=== PATIENT | female | born 1940 | race Caucasian/White ===

== ENCOUNTER → 2016-10-15 | Outpatient (CLI) | payer OTHER ==
[~2016-10-15] MED LIST: AMOX1TAB43 PO; APIX1TAB3 PO; ASCA500 PO; ASCO500T3 PO; CALC600T37 PO; CALCTAB5 PO; ELQ25 PO; FURO-85 PO; GLUC500C4 PO; IBUP-1050 PO; LEVO75TA PO; LOSA1TAB38 PO; MULT-190 PO; MULT60CA PO; OMEG10007 PO; ONDA4TAB10 SL
[2016-10-15 12:03] LABS: MEAN CELL VOLUME 88.4 fL (80-100); MEAN CORPUSCULAR HEMOGLOBIN 28.3 pg (25-34); MEAN PLATELET VOLUME 9.8 fL (7.4-10.4); PLATELET COUNT 235 K/uL (130-400); RED BLOOD COUNT 4.98 M/uL (4.2-5.4); WHITE BLOOD COUNT 6.32 K/uL (4.8-10.8)
[2016-10-15 12:12] LABS: ALT/SGPT 20 U/L (12-78); BLOOD UREA NITROGEN 13 mg/dl (7-18); BUN/CREATININE RATIO 16.9 (10-20); CARBON DIOXIDE 26 mmol/L (21-32); CHLORIDE 109 mmol/L (98-107); CHOLESTEROL 172 mg/dl (0-200); CREATININE 0.75 mg/dl (0.60-1.20); GLUCOSE 100 mg/dl (70-99); POTASSIUM 4.3 mmol/L (3.5-5.1); SODIUM 142 mmol/L (136-145); TRIGLYCERIDES 156 mg/dl (0-150); VERY LOW DENSITY LIPOPROT CALC 31 mg/dl
[2016-10-15 12:15] LABS: CALCIUM 9.3 mg/dl (8.5-10.1)
[2016-10-15 12:23] LABS: ALB/GLOB RATIO 1.1 (0.9-2); ALKALINE PHOSPHATASE 60 U/L (45-117); AST/SGOT 16 U/L (15-37); HDL CHOLESTEROL 43 mg/dl; LDL CHOLESTEROL CALCULATED 98 mg/dl
[2016-10-15 13:01] LABS: ESTIMATED AVERAGE GLUCOSE 120 mg/dl; HA1C FLAG Normal (Normal)
== END | disposition home or self-care (01) ==
LOC: C.LABBFT 07:38
PROVIDERS: ATTEND Internal Medicine
DX: R73.01 Impaired fasting glucose (principal); E03.9 Hypothyroidism, unspecified; I10 Essential (primary) hypertension

== ENCOUNTER 2016-11-11 06:40 | Inpatient (IN) | payer OTHER ==
[~2016-11-11] VITALS: Ht 167.6 cm; Wt 100.0 kg
[~2016-11-11 06:40] MED LIST changes: -AMOX1TAB43 PO; -APIX1TAB3 PO; -ASCO500T3 PO; -CALC600T37 PO; -ELQ25 PO; -FURO-85 PO; -MULT60CA PO; -ONDA4TAB10 SL
[2016-11-11] MEDS ORDERED: HYDROmorphone INJ 0.5 MG/0.5 ML SYR IV STA (07:04)
[2016-11-11] MEDS ORDERED: ONDANSETRON INJ 2 MG/ML 2 ML VIAL IV STA (07:04)
[2016-11-11 07:50] LABS: BASO % 0.1 %; BASO ABS # 0.01 K/uL (0-0.2); COMPLETE YES; EOS % 0.4 %; HEMATOCRIT 42.7 % (37-47); IG% 0.2 %; LYMPH % 15.1 %; LYMPH ABS # 1.69 K/uL (1.2-3.4); MEAN CORPUSCULAR HEMOGLOBIN 29.5 pg (25-34); MEAN PLATELET VOLUME 9.3 fL (7.4-10.4); MONO % 6.7 %; NEUT % 77.5 %; PLATELET COUNT 214 K/uL (130-400); RED BLOOD COUNT 4.91 M/uL (4.2-5.4); WHITE BLOOD COUNT 11.19 K/uL (4.8-10.8)
[2016-11-11 08:01] LABS: PROTHROMBIN TIME (PATIENT) 10.4 SECONDS (9.0-12.0)
[2016-11-11 08:07] LABS: BUN/CREATININE RATIO 18.2 (10-20); CALCIUM 9.2 mg/dl (8.5-10.1); CREATININE 0.78 mg/dl (0.60-1.20); POTASSIUM 3.8 mmol/L (3.5-5.1)
--- NOTE | 2016-11-11 09:14 | DIAGNOSTIC IMAGING REPORT ---
Venous Doppler right leg RIGHT VENOUS DOPP LOWER EXT UNILAT CLINICAL HISTORY: RLE swelling Right pain. Edema. TECHNIQUE: Venous Doppler COMPARISON STUDY: 09/18/2015 FINDINGS: Chronic venous scarring of the saphenous venous structures. Small amount of intraluminal stranding right proximal femoral vein as well as profunda vein. All remaining deep venous structures are unremarkable. IMPRESSION: 1. Acute deep venous thrombosis proximal right femoral vein. 2. 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 11/11/2016 9:13 AM Dictated Date/Time: 11/11/2016 9:10 AM
[2016-11-11] MEDS ORDERED: CALC600T37 PO (09:27)
[2016-11-11] MEDS ORDERED: ASCO500T3 PO (09:27)
[2016-11-11] MEDS ORDERED: MULT-190 PO (09:27)
[2016-11-11] MEDS ORDERED: CEFTRIAXONE SOD INJ 1 GM ADDVIAL IV STA (09:52)
[2016-11-11] MEDS ORDERED: HEPARIN 25000 UNIT/ D5W 500 ML (PHARMACY PREPARED) IV PRN ×2 (10:15)
[2016-11-11 10:23] VITALS: O2SAT 96; Ht 167.6 cm; Wt 100.0 kg
[2016-11-11] MEDS ORDERED: HEPARIN 25000 UNIT/500 ML D5W ONE (10:31)
[2016-11-11] MEDS ORDERED: HEPARIN IV BOLUS 4,000 UNIT in SYRINGE 0 ML IV ONE (11:00)
[2016-11-11] MEDS ORDERED: ALUMINUM/MAGNESIUM/SIMETH (MAALOX MAX) 30 ML UDC PO PRN (11:15)
[2016-11-11] MEDS ORDERED: ACETAMINOPHEN 325 MG TAB PO PRN (11:15)
[2016-11-11] MEDS ORDERED: ONDANSETRON INJ 2 MG/ML 2 ML VIAL IV PRN (11:15)
[2016-11-11] MEDS ORDERED: ENOXAPARIN 1 MG/KG SQ SCH (11:15)
[2016-11-11] MEDS ORDERED: MAGNESIUM HYDROXIDE SUSP 30 ML UDC PO PRN (11:15)
[2016-11-11] MEDS ORDERED: OXYCODONE HCL IR 5 MG TAB (IMMEDIATE RELEASE) PO PRN (11:15)
[2016-11-11] MEDS ORDERED: POLYETHYLENE (MIRALAX) 17 GM PACK PO PRN (11:15)
[2016-11-11 13:01] VITALS: O2SAT 95
[2016-11-11 13:30] VITALS: BP 148/76; PULSE 89; TEMP 37.4; O2SAT 95
--- NOTE | 2016-11-11 14:00 | History and Physical ---
History & Physical Date & Time of Service: Nov 11, 2016 at 13:51 Chief Complaint: Leg Cellulitis, Right Leg Dvt Primary Care Physician: Yoan Medrano M.D. History of Present Illness This patient presents for admission with acute right lower extremity DVT and secondary cellulitis. She is a history of an ORIF to her right ankle in 2008 and superficial thrombophlebitis of her lower leg in August 2015. Because a superficial phlebitis with symptomatic she was treated by her primary care physician with Eliquis. The patient presents today with 24-hour history of worsening leg swelling and erythema to her distal right leg. The patient has chronic leg swelling on that side and it is worse than usual for her. In the emergency department there was initial concern for cellulitis with a white blood cell count elevated to 11, however a venous Doppler confirms evidence of a DVT proximal to the cellulitis area. The patient is agreeable for admission for treatment of her cellulitis and is also agreeable to re-beginning Eliquis to treat her DVT Past Medical/Surgical History Surgical Problems: (1) History of hysterectomy Status: Resolved Family History Cancer Heart disease Social History Smoking Status: Never Smoker Smokeless Tobacco Use: No Alcohol Use: none Occupational Status: retired Immunizations History of Influenza Vaccine: N/A History of Tetanus Vaccine?: No History of Pneumococcal: No History of Hepatitis B Vaccine: No Multi-Drug Resistant Organisms History of MDRO: No Allergies Coded Allergies: Morphine (Verified Adverse Reaction, Severe, vomit, 11/11/16) Home Medications Scheduled Amoxicillin & Pot Clavulanate (Amoxicillin/Clavulanate P), 875 MG PO BIDM Apixaban (Eliquis), 5 MG PO BID Ascorbic Acid (Vitamin C), 1 TAB PO DAILY Calcium (Calcium), 1 TAB PO DAILY Fish Oil ([place]-3), 2 CAP PO BID Glucosamine Sulfate (Glucosamine), 500 MG PO QAM Levothyroxine Sodium (Synthroid), 75 MCG PO DAILYBB Losartan Potassium (Cozaar), 100 MG PO QAM Ocuvite Preservision (Ocuvite Preservision), 2 TABS PO DAILY Review of Systems ROS: well nourished well developed No double vision blurry vision No problems with speech or swallowing No palpitations, chest pain or pressure No Wheezing or breathing issues No abdominal pain nausea vomiting diarrhea changes in appetite or weight No burning urine urine frequency or changes in color Right calf is painful to muscular flexion and touch and more swollen than usual Distal right leg skin is erythematous warm and tender No unusual bruising or bleeding No focused back pain or numbness or loss of strength No changes in memory or confusion Physical Exam Vital Signs Date Time Temp Pulse Resp B/P (MAP) Pulse Ox O2 Delivery O2 Flow Rate FiO2 11/11/16 13:30 37.4 89 18 148/76 (100) 95 Room Air 11/11/16 13:01 84 18 148/65 95 Room Air 11/11/16 11:25 88 18 151/88 95 Room Air 11/11/16 10:23 96 Room Air 11/11/16 09:30 88 18 150/81 96 Room Air 11/11/16 06:46 36.6 95 18 99 Room Air General Appearance: WD/WN, + mild distress Head: normocephalic, atraumatic Eyes: PERRL, EOMI Neck: supple, no JVD Respiratory/Chest: chest non-tender, lungs clear, normal breath sounds Cardiovascular: regular rate, rhythm, no murmur Abdomen/GI: normal bowel sounds, non tender, soft Extremities/Musculoskelatal: + pedal edema, + swelling (tender right calf) Neurologic/Psych: 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 counselor II-XII nml as tested, no motor/sensory deficits, alert Skin: + pertinent finding (changes consistent with chronic venous stasis and secondary cellulitis of right lower leg) Diagnostics Laboratory Results Results Past 24 Hours Test 11/11/16 07:30 Range/Units White Blood Count 11.19 4.8-10.8 K/uL Red Blood Count 4.91 4.2-5.4 M/uL Hemoglobin 14.5 12.0-16.0 g/dL Hematocrit 42.7 37-47 % Mean Corpuscular Volume 87.0 80-100 fL Mean Corpuscular Hemoglobin 29.5 25-34 pg Mean Corpuscular Hemoglobin Concent 34.0 32-36 g/dl Platelet Count 214 130-400 K/uL Mean Platelet Volume 9.3 7.4-10.4 fL Neutrophils (%) (Auto) 77.5 % Lymphocytes (%) (Auto) 15.1 % Monocytes (%) (Auto) 6.7 % Eosinophils (%) (Auto) 0.4 % Basophils (%) (Auto) 0.1 % Neutrophils # (Auto) 8.68 1.4-6.5 K/uL Lymphocytes # (Auto) 1.69 1.2-3.4 K/uL Monocytes # (Auto) 0.75 0.11-0.59 K/uL Eosinophils # (Auto) 0.04 0-0.5 K/uL Basophils # (Auto) 0.01 0-0.2 K/uL RDW Standard Deviation 39.6 36.4-46.3 fL RDW Coefficient of Variation 12.3 11.5-14.5 % Immature Granulocyte % (Auto) 0.2 % Immature Granulocyte # (Auto) 0.02 0.00-0.02 K/uL Prothrombin Time 10.4 9.0-12.0 SECONDS Prothromb Time International Ratio 1.0 0.9-1.1 Activated Partial Thromboplast Time 24.7 21.0-31.0 SECONDS Partial Thromboplastin Ratio 1.0 Sodium Level 140 136-145 mmol/L Potassium Level 3.8 3.5-5.1 mmol/L Chloride Level 108 98-107 mmol/L Carbon Dioxide Level 27 21-32 mmol/L Anion Gap 5.0 3-11 mmol/L Blood Urea Nitrogen 14 7-18 mg/dl Creatinine 0.78 0.60-1.20 mg/dl Est Creatinine Clear Calc Drug Dose 72.0 ml/min Estimated GFR () 85.0 Estimated GFR (Non- 73.3 BUN/Creatinine Ratio 18.2 10-20 Random Glucose 116 70-99 mg/dl Calcium Level 9.2 8.5-10.1 mg/dl Total Bilirubin 0.8 0.2-1 mg/dl Direct Bilirubin 0.1 0-0.2 mg/dl Aspartate Amino Transf (AST/SGOT) 17 15-37 U/L Alanine Aminotransferase (ALT/SGPT) 20 12-78 U/L Alkaline Phosphatase 66 45-117 U/L Total Protein 6.8 6.4-8.2 gm/dl Albumin 3.6 3.4-5.0 gm/dl Microbiology Results 11/11/16 Blood Culture, Received Pending 11/11/16 Blood Culture, Received Pending Diagnostic Radiology le DVT Right leg IMPRESSION: 1. Acute deep venous thrombosis proximal right femoral vein. 2. 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 For her hypertension we'll maintain her Cozaar Advanced Directives Existing Living Will: No Existing Power of Reimbursement Analyst: No VTE Prophylaxis VTE Risk Assessment Done? Y/N: Yes Risk Level: High Given or contraindicated: Other Anticoagulation
[2016-11-11] MEDS: ENOXAPARIN 100 MG/1ML SYR SQ SCH ×2 (14:49→19:51)
--- NOTE | 2016-11-11 15:17 | EMERGENCY ROOM VISIT NOTE ---
History Report prepared by Damion: Marcelino Lawrence Under the Supervision of: Dr. Hudson Johnson M.D. First contact with patient: 06:50 Chief Complaint: LEG PAIN,LEG INJURY Stated Complaint: SWOLLEN RIGHT LEG-SORE TO THE TOUCH History of Present Illness The patient is a 76 year old female who presents to the Emergency Room with complaints of constant right leg pain starting this morning. She rates her pain as an 8/10 in severity and reports that the pain is only on the anterior side of her right lower leg. The patient states that she felt fine yesterday when she wore her compression socks to treat her edema and was walking normally. The patient reports that she woke up this morning with her right leg swollen, red, and warm to the touch. The patient states that the right leg is painful and worsened with exertion and walking. She reports that she normally has edema to her extremities that started when she had surgery on her right ankle in the past , but denies experiencing redness to her leg in the past. The patient states that she has a history of a superficial blood clot last year, which she was treated for with blood thinners. She denies any currently taking any blood thinners. She also reports having an ultrasound done on September 17, 2016. The patient reports that she has an allergy to Morphine and experiences nausea whenever she is administered it. She states that her PCP is Dr. Medrano of [facility]. The patient denies any history of cellulitis, LOC , headache, fevers, chills, diaphoresis, visual changes, neck pain, chest pain, breathing difficulties, nausea, vomiting, abdominal pain, back pain, melena, hematochezia, urinary symptoms, numbness, weakness, lymphadenopathy, rash, or other complaints. Source of History: patient Onset: this morning Position: leg (right) Symptom Intensity: 8/10 Timing: constant Modifying Factors (Worsening): other (walking) Review of Systems See HPI for pertinent positives and negatives. A total of ten systems were reviewed and were otherwise negative. Past Medical & Surgical Medical Problems: (1) Cellulitis, leg (2) Hypertension (3) Hypothyroidism (4) Migraine (5) Right leg DVT Surgical Problems: (1) History of hysterectomy (2) Hx of tubal ligation Family History Cancer Heart disease Social History Smoking Status: Never Smoker Smokeless Tobacco Use: No Alcohol Use: none Drug Use: none Marital Status: Housing Status: lives with significant other Occupation Status: retired Current/Historical Medications Scheduled Ascorbic Acid (Vitamin C), 1 TAB PO DAILY Calcium (Calcium), 1 TAB PO DAILY Fish Oil ([place]-3), 2 CAP PO BID Glucosamine Sulfate (Glucosamine), 500 MG PO QAM Levothyroxine Sodium (Synthroid), 75 MCG PO DAILYBB Losartan Potassium (Cozaar), 100 MG PO QAM Ocuvite Preservision (Ocuvite Preservision), 2 TABS PO DAILY Allergies Coded Allergies: Morphine (Verified Adverse Reaction, Severe, vomit, 11/11/16) Physical Exam Vital Signs Date Time Temp Pulse Resp B/P (MAP) Pulse Ox O2 Delivery O2 Flow Rate FiO2 11/11/16 10:23 96 Room Air 11/11/16 09:30 88 18 150/81 96 Room Air 11/11/16 06:46 36.6 95 18 99 Room Air Physical Exam GENERAL: Awake, alert, well-appearing, in no distress HENT: Normocephalic, atraumatic. Oropharynx unremarkable. EYES: Normal conjunctiva. Sclera non-icteric. NECK: Supple. No nuchal rigidity. FROM. No JVD. RESPIRATORY: Clear to auscultation. CARDIAC: Regular rate, normal rhythm. Extremities warm and well perfused. Pulses equal. ABDOMEN: Soft, non-distended. No tenderness to palpation. No rebound or guarding. No masses. RECTAL: Deferred. MUSCULOSKELETAL: Chest examination reveals no tenderness. The back is symmetrical on inspection without obvious abnormality. There is no CVA tenderness to palpation. No joint edema. LOWER EXTREMITIES: Warm, redness, and tenderness to anterior medial right lower extremity. Calves are equal size bilaterally and non-tender. 1+ edema to right leg and 2+ edema to left leg. No discoloration. NEURO: Normal sensorium. No sensory or motor deficits noted. SKIN: No rash or jaundice noted. Medical Decision & Procedures ER Provider Diagnostic Interpretation: Ultrasound results as stated below per my review and radiologist interpretation: Venous Doppler right leg RIGHT VENOUS DOPP LOWER EXT UNILAT CLINICAL HISTORY: RLE swelling Right pain. Edema. TECHNIQUE: Venous Doppler COMPARISON STUDY: 09/18/2015 FINDINGS: Chronic venous scarring of the saphenous venous structures. Small amount of intraluminal stranding right proximal femoral vein as well as profunda vein. All remaining deep venous structures are unremarkable. IMPRESSION: 1. Acute deep venous thrombosis proximal right femoral vein. 2. 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 11/11/2016 9:13 AM Dictated Date/Time: 11/11/2016 9:10 AM Laboratory Results 11/11/16 07:30 Red Blood Count 4.91, Mean Corpuscular Volume 87.0, Mean Corpuscular Hemoglobin 29.5, Mean Corpuscular Hemoglobin Concent 34.0, Mean Platelet Volume 9.3, Neutrophils (%) (Auto) 77.5, Lymphocytes (%) (Auto) 15.1, Monocytes (%) (Auto) 6.7, Eosinophils (%) (Auto) 0.4, Basophils (%) (Auto) 0.1, Neutrophils # (Auto) 8.68, Lymphocytes # (Auto) 1.69, Monocytes # (Auto) 0.75, Eosinophils # (Auto) 0.04, Basophils # (Auto) 0.01 11/11/16 07:30 Test 11/11/16 07:30 White Blood Count 11.19 K/uL (4.8-10.8) Red Blood Count 4.91 M/uL (4.2-5.4) Hemoglobin 14.5 g/dL (12.0-16.0) Hematocrit 42.7 % (37-47) Mean Corpuscular Volume 87.0 fL (80-100) Mean Corpuscular Hemoglobin 29.5 pg (25-34) Mean Corpuscular Hemoglobin Concent 34.0 g/dl (32-36) Platelet Count 214 K/uL (130-400) Mean Platelet Volume 9.3 fL (7.4-10.4) Neutrophils (%) (Auto) 77.5 % Lymphocytes (%) (Auto) 15.1 % Monocytes (%) (Auto) 6.7 % Eosinophils (%) (Auto) 0.4 % Basophils (%) (Auto) 0.1 % Neutrophils # (Auto) 8.68 K/uL (1.4-6.5) Lymphocytes # (Auto) 1.69 K/uL (1.2-3.4) Monocytes # (Auto) 0.75 K/uL (0.11-0.59) Eosinophils # (Auto) 0.04 K/uL (0-0.5) Basophils # (Auto) 0.01 K/uL (0-0.2) RDW Standard Deviation 39.6 fL (36.4-46.3) RDW Coefficient of Variation 12.3 % (11.5-14.5) Immature Granulocyte % (Auto) 0.2 % Immature Granulocyte # (Auto) 0.02 K/uL (0.00-0.02) Prothrombin Time 10.4 SECONDS (9.0-12.0) Prothromb Time International Ratio 1.0 (0.9-1.1) Activated Partial Thromboplast Time 24.7 SECONDS (21.0-31.0) Partial Thromboplastin Ratio 1.0 Anion Gap 5.0 mmol/L (3-11) Est Creatinine Clear Calc Drug Dose 72.0 ml/min Estimated GFR () 85.0 Estimated GFR (Non- 73.3 BUN/Creatinine Ratio 18.2 (10-20) Calcium Level 9.2 mg/dl (8.5-10.1) Total Bilirubin 0.8 mg/dl (0.2-1) Direct Bilirubin 0.1 mg/dl (0-0.2) Aspartate Amino Transf (AST/SGOT) 17 U/L (15-37) Alanine Aminotransferase (ALT/SGPT) 20 U/L (12-78) Alkaline Phosphatase 66 U/L (45-117) Total Protein 6.8 gm/dl (6.4-8.2) Albumin 3.6 gm/dl (3.4-5.0) Laboratory results reviewed by me Medications Administered Medications (Trade) Dose Ordered Sig/Vega Route Start Time Stop Time Status Last Admin Dose Admin Hydromorphone HCl (Dilaudid Inj) 0.5 mg NOW STAT IV 11/11/16 07:04 11/11/16 07:07 DC 11/11/16 08:06 0.5 MG Ondansetron HCl (Zofran Inj) 4 mg NOW STAT IV 11/11/16 07:04 11/11/16 07:07 DC 11/11/16 08:06 4 MG Ceftriaxone Sodium (Rocephin Inj) 1 gm NOW STAT IV 11/11/16 09:52 11/11/16 09:54 DC 11/11/16 10:34 1 GM Heparin Sodium (Porcine) 4000 unit/Syringe 4 ml @ 10 mls/min TODAY@1100 ONCE IV 11/11/16 11:00 11/11/16 11:01 DC 11/11/16 11:13 10 MLS/MIN Heparin Sodium/ Dextrose (Heparin 25,000 Unit/500ml D5W) 25,000 unit STK-MED ONCE .ROUTE 11/11/16 10:31 11/11/16 10:32 DC 11/11/16 10:35 25,000 UNIT Ondansetron HCl (Zofran Inj) 4 mg Q6H PRN IV 11/11/16 11:15 12/11/16 11:14 11/11/16 13:52 4 MG Oxycodone HCl (Roxicodone Immediate Rel Tab) 10 mg Q6 PRN PO 11/11/16 11:15 11/25/16 11:14 11/11/16 13:06 10 MG ED Course 0700: The patient was evaluated in room B03B. A complete history and physical exam was performed. 0704: Zofran Injection 4 mg IV, Dilaudid Injection 0.5 mg IV. 0803: I reevaluated the patient and she is still waiting for her Dilaudid medication. 0905: I reevaluated the patient and she is resting comfortably. She is waiting for her ultrasound results 0951: I reevaluated the patient and she is feeling better. I discussed the results of her ultrasound and treatment plan. She understands and agrees to admission. 0952: Rocephin Injection 1 gram IV, Heparin Sodium/ Dextrose 1 each. 0955: I discussed the patient's case with Dr. Hebert, [facility] Hospitalist. He understands the patient's conditions and agrees to accept the patient. The patient will be further evaluated. 1015: Heparin Sodium (Porcine) 4000 ml @ 10 mls/min IV, Heparin Sodium (Porcine ) 15485 unit/ Dextrose 500 ml @ 18 mls/hr IV. 1100: Heparin Sodium (Porcine) 4000 unit/ Syringe 4 ml @ 10 mls/min IV. Medical Decision Medication Reconciliation: I attest that I have personally reviewed the patient' s current medication list Patient was found to have a slightly elevated blood pressure due to circumstances. I do not believe that the patient requires hypertension monitoring. Triage Nursing notes reviewed. The patient's presentation and history were concerning for leg swelling and pain. Etiologies such as DVT, infection, trauma, muscular, lymphedema, idiopathic, CHF, as well as others were entertained. The patient was evaluated. Her right lower leg was swollen, warm, and tender. She has history of a superficial thrombophlebitis but also had surgery on that leg 8 years ago. The patient had blood work obtained. She was given Dilaudid and Zofran due to the significant pain. Ultrasound imaging was ordered. The patient had a leukocytosis on CBC. Her chemistry panel, coags, and LFTs are unremarkable. The patient had an ultrasound performed. She was given a dose of IV Rocephin. Ultrasound revealed a proximal femoral DVT. Because of this the patient will need anticoagulation and admission to the hospital. IV heparin was initiated. consultation was made with the internal medicine team. The patient was evaluated in the Emergency Room for further treatment Consults Time Called: 09 Consulting Physician: Dr. Hebert, [facility] Hospitalist Returned Call: [phone] I discussed the patient's case with Dr. Hebert, [facility] Hospitalist. He understands the patient's conditions and agrees to accept the patient. The patient will be further evaluated. Impression Primary Impression: Right leg DVT Additional Impression: Cellulitis of right leg Scribe Attestation The scribe's documentation has been prepared under my direction and personally reviewed by me in its entirety. I confirm that the note above accurately reflects all work, treatment, procedures, and medical decision making performed by me. Departure Information Dispostion Being Evaluated By Hospitalist (Dr. Hebert) Referrals Yoan Medrano M.D. (PCP) Patient Instructions [facility] Problem Qualifiers
[2016-11-11] MEDS ORDERED: PROMETHAZINE HCL INJ 12.5 MG in SODIUM CHLORIDE 0.9% 50ML 50 ML IV PRN (15:30)
[2016-11-11] MEDS: AMOXICILLIN/CLAVULANATE TAB 875 MG TAB PO SCH ×2 (17:27→19:51)
[2016-11-11] MEDS: OMEGA-3 (PURIFIED FISH OIL) 1 GM CAP PO SCH (19:51)
[2016-11-11 23:52] VITALS: BP 104/62; PULSE 75; TEMP 36.9; O2SAT 92
[2016-11-12] MEDS: ENOXAPARIN 100 MG/1ML SYR SQ SCH (06:14)
[2016-11-12] MEDS ORDERED: LEVOTHYROXINE 75 MCG TAB PO SCH (06:30)
[2016-11-12 07:22] LABS: HEMATOCRIT 38.2 % (37-47); MEAN CELL VOLUME 87.4 fL (80-100); MEAN CORPUSCULAR HEMOGLOBIN 28.4 pg (25-34); MEAN CORPUSCULAR HGB CONC 32.5 g/dl (32-36); PLATELET COUNT 176 K/uL (130-400); RED BLOOD COUNT 4.37 M/uL (4.2-5.4); WHITE BLOOD COUNT 9.18 K/uL (4.8-10.8)
[2016-11-12 07:31] VITALS: BP 156/84; PULSE 79; TEMP 37.1; O2SAT 96
[2016-11-12 08:00] LABS: BUN/CREATININE RATIO 17.3 (10-20); CALCIUM 8.8 mg/dl (8.5-10.1); CREATININE 0.83 mg/dl (0.60-1.20); POTASSIUM 3.6 mmol/L (3.5-5.1)
[2016-11-12] MEDS ORDERED: ASCORBIC ACID 500 MG TAB PO SCH (08:00)
[2016-11-12] MEDS ORDERED: GLUCOSAMINE SULFATE 500 MG CAP PO SCH (08:00)
[2016-11-12] MEDS ORDERED: CEROVITE ADV FORMULA TAB PO SCH (08:00)
[2016-11-12] MEDS ORDERED: LOSARTAN POTASSIUM 50 MG TAB PO SCH (08:00)
[2016-11-12] MEDS ORDERED: CALCIUM PO SCH (08:00)
[2016-11-12] MEDS: AMOXICILLIN/CLAVULANATE TAB 875 MG TAB PO SCH (08:31)
[2016-11-12] MEDS: OMEGA-3 (PURIFIED FISH OIL) 1 GM CAP PO SCH (08:31)
[2016-11-12] MEDS ORDERED: ELQ25 PO (11:29)
--- NOTE | 2016-11-12 11:30 | Discharge Instructions ---
Discharge Instructions Date of Service Nov 12, 2016. Admission Reason for Admission: Leg Cellulitis, Right Leg Dvt Discharge Discharge Diagnosis / Problem: acute dvt, cellulitis Discharge Goals Goal(s): Diagnostic testing, Therapeutic intervention Activity Recommendations Activity Limitations: resume your previous activity . Instructions / Follow-Up Instructions / Follow-Up Please start Eliquis dose tonight around 6 pm then begin daily dose Eliquis is usually 10 mg twice a day for one week then 5 mg twice a day Current Hospital Diet Patient's current hospital diet: Regular Diet Discharge Diet Recommended Diet: Regular Diet Pending Studies Studies pending at discharge: yes List of pending studies: hypercoagulable labs Laboratory Results Hemoglobin A1c Test 10/15/16 07:46 Range/Units Estimated Average Glucose 120 mg/dl Hemoglobin A1c 5.8 H 4.5-5.6 % Lipid Panel Test 10/15/16 07:46 Range/Units Triglycerides Level 156 H 0-150 mg/dl Cholesterol Level 172 0-200 mg/dl HDL Cholesterol 43 mg/dl Cholesterol/HDL Ratio 4.0 LDL Cholesterol, Calculated 98 mg/dl Medical Emergencies . Who to Call and When: Medical Emergencies: If at any time you feel your situation is an emergency, please call 911 immediately. . Non-Emergent Contact Non-Emergency issues call your: Primary Care Provider Call Non-Emergent contact if: temperature is above 101, your pain is unusual for you . . "Provider Documentation" section prepared by Dontrell Hebert. . VTE Core Measure Inpt VTE Proph given/why not?: Other Anticoagulation
[2016-11-12] MEDS ORDERED: AMOX1TAB43 PO (11:31)
[2016-11-12] MEDS ORDERED: APIXABAN 2.5 MG TAB PO ONE (11:45)
[2016-11-12 11:48] VITALS: BP 156/84; PULSE 79; TEMP 37.1; O2SAT 96
--- NOTE | 2016-11-12 13:58 | Discharge Summary ---
Discharge Summary Date of Service Nov 12, 2016. Discharge Summary Admission Date: Nov 11, 2016 at 11:17 Discharge Date: Nov 12, 2016 Discharge Disposition: Home Principal Diagnosis: dvt right leg, right leg cellulitis Immunizations: Have You Had Influenza Vaccine: N/A History of Tetanus Vaccine?: No History of Pneumococcal: No History of Hepatitis B Vaccine: No Procedures: doppler with dvt proximal right femoral vein Medication Reconciliation New Medications: Apixaban (Eliquis) 2.5 Mg Tab 5 MG PO BID, #45 TAB for the first week take 10 mg twice a day then reduce to 5 mg twice a day there after Amoxicillin & Pot Clavulanate (Amoxicillin/Clavulanate P) 1 Tab Tab 875 MG PO BIDM, #18 TAB Continued Medications: Ascorbic Acid (Vitamin C) 500 Mg Tab 1 TAB PO DAILY Calcium (Calcium) 600 Mg Tab 1 TAB PO DAILY Fish Oil ([place]-3) 1 Ea Cap 2 CAP PO BID Glucosamine Sulfate (Glucosamine) 500 Mg Cap 500 MG PO QAM Levothyroxine Sodium (Synthroid) 75 Mcg Tab 75 MCG PO DAILYBB Losartan Potassium (Cozaar) 100 Mg Tab 100 MG PO QAM Ocuvite Preservision (Ocuvite Preservision) 1 Tab Tab 2 TABS PO DAILY, TAB Discharge Exam Review of Systems: Constitutional: No fever, No chills Respiratory: No cough, No sputum Cardiovascular: + edema, No chest pain, No orthopnea Abdomen: No pain, No nausea Physical Exam: General Appearance: WD/WN, + mild distress Respiratory/Chest: chest non-tender, lungs clear, normal breath sounds Cardiovascular: regular rate, rhythm, + systolic murmur Extremities: + pedal edema, + swelling, + pertinent finding (changes of some chronic venous stasis) Hospital Course 76-year-old female with acute right lower extremity DVT and secondary cellulitis For the DVT heparin was begun in the ER as given lovenox and rusty transition her Eliquis once home as she had tolerated this in the past Regarding the cellulitis will be an oral Augmentin therapy twice a day for 9 more days reinforced elevation of leg and follow up with Dr Medrnao For her hypertension we'll maintain her Cozaar Total Time Spent: Greater than 30 minutes This includes examination of the patient, discharge planning, medication reconciliation, and communication with other providers. Discharge Instructions Please refer to the electronic Patient Visit Report (Discharge Instructions) for additional information.
[2016-11-12] MEDS ORDERED: APIXABAN 2.5 MG TAB PO SCH (20:00)
[2016-11-16 00:27] LABS: B2 GLYCOPROTEIN IGA <9 SAU (<=20); B2 GLYCOPROTEIN IGG <9 SGU (<=20); B2 GLYCOPROTEIN IGM <9 SMU (<=20); LUPUS ANTICOAGULANT** TC36573X Positive (Negative); PROTEIN C ACTIVITY** TC 1777X 88 % (70-180); PROTEIN S ACT(FUNCT)**1779X 72 % (60-140)
== END 2016-11-12 12:15 | disposition home or self-care (01) | DRG 300 ==
LOC: C.EDB 06:41 → C.MS4W 11:17 → ENRESERV 11:32
PROVIDERS: ADMIT Internal Medicine; ATTEND Internal Medicine
DX: I82.411 Acute embolism and thrombosis of right femoral vein (principal); L03.115 Cellulitis of right lower limb; I10 Essential (primary) hypertension; E03.9 Hypothyroidism, unspecified; Z79.899 Other long term (current) drug therapy

== ENCOUNTER → 2016-12-03 | Outpatient (CLI) | payer OTHER ==
[~2016-12-03] MED LIST changes: +AMOX1TAB43 PO; -ASCA500 PO; +ASCO500T3 PO; +CALC600T37 PO; -CALCTAB5 PO; +ELQ25 PO; -IBUP-1050 PO
--- NOTE | 2016-12-03 13:21 | MAMMOGRAPHY REPORT ---
BILATERAL DIGITAL SCREENING MAMMOGRAM WITH CAD: 12/03/2016 CLINICAL HISTORY: Routine screening. Patient has no complaints. TECHNIQUE: Current study was also evaluated with a Computer Aided Detection (CAD) system. Bilateral CC and MLO views were obtained. COMPARISON: Comparison is made to exams dated: 12/03/2015 mammogram, 11/04/2014 mammogram, 11/13/2013 ult rasound, 11/13/2013 mammogram, 11/01/2013 mammogram, and 10/31/2012 mammogram - [facility] er. BREAST COMPOSITION: There are scattered areas of fibroglandular density in both breasts. FINDINGS: There is a new 13 mm focal asymmetry in the right central breast, for which spot compressi on tomosynthesis views and possible breast ultrasound are recommended for further evaluation. Additi onally, there is an oval circumscribed 8 mm mass in the right subareolar breast seen on the cc view o nly, which appears similar to prior exams and may represent a cyst although spot compression views an d possible ultrasound are recommended for further evaluation. The remainder of both breasts are stable compared to prior exams, without suspicious masses, calcific ations, or areas of architectural distortion noted. IMPRESSION: ACR BI-RADS CATEGORY 0: INCOMPLETE EVALUATION: NEED ADDITIONAL IMAGING EVALUATION Right breast asymmetry and right breast mass, for which additional imaging evaluation is recommended. The patient will be called to schedule an appointment. Approximately 10% of breast cancers are not detected with mammography. A negative mammographic report should not delay biopsy if a clinically suggestive mass is present. Felicitas Chin M.D. ah/:12/03/2016 12:25:13 Scraper Meat: Dinorah MCLEOD(Norberto)(M), [facility] letter sent: Addl Imaging 0 BI-RADS Code: ACR BI-RADS Category 0: Incomplete Evaluation: Need Additional Imaging Evaluation
== END | disposition home or self-care (01) ==
LOC: C.MAMM 09:16
PROVIDERS: ATTEND Internal Medicine
DX: Z12.31 Encounter for screening mammogram for malignant neoplasm of breast (principal); N64.89 Other specified disorders of breast; N63 Unspecified lump in breast

== ENCOUNTER → 2016-12-15 | Outpatient (CLI) | payer OTHER ==
[~2016-12-15] MED LIST changes: +APIX1TAB3 PO; +FURO-85 PO; +MULT60CA PO; +ONDA4TAB10 SL
--- NOTE | 2016-12-15 15:19 | MAMMOGRAPHY REPORT ---
UNILATERAL RIGHT DIGITAL DIAGNOSTIC MAMMOGRAM TOMOSYNTHESIS AND TARGETED RIGHT ULTRASOUND: 12/15/2016 CLINICAL HISTORY: 76-year-old woman called back from screening mammography for. TECHNIQUE: Spot compression right CC and MLO 2-D and tomosynthesis images were obtained. COMPARISON: Comparison is made to exams dated: 12/03/2016 mammogram, 12/03/2015 mammogram, 11/04/2014 mamm ogram, 11/13/2013 ultrasound, 11/13/2013 mammogram, and 11/01/2013 mammogram - [facility]. BREAST COMPOSITION: There are scattered areas of fibroglandular density in the right breast. FINDINGS: The additional spot compression 2-D and tomosynthesis images of the right breast demonstrat e persistence of a well-circumscribed 11 x 13 x 9 mm mass in the anterior retroareolar right breast, 2.6 cm distal to the nipple. No associated architectural distortion or calcification. Another possi ble oval circumscribed mass measuring 9 x 6 mm in the subareolar right breast on the spot compression CC view, not definitively seen on the spot compression MLO view. No focal area of architectural dis tortion or microcalcifications are seen. There are mild vascular calcifications in the right breast. Targeted ultrasound was performed of the right breast. In the retroareolar breast, there is an oval parallel circumscribed anechoic benign simple cyst with posterior acoustic enhancement, measuring 12. 0 x 6.0 x 9.3 mm. This correlates well with the 13 mm mammographic mass and is benign. In the subar eolar/3:00 periareolar right breast, a smaller circumscribed oval mass is identified, measuring 3.1 x 2.1 x 3.4 mm. This is mixed anechoic with internal hypoechoic foci. This probably represents a com plicated cyst, a short interval follow-up targeted ultrasound is recommended to ensure stability in 6 months. This may correlate with the second smaller mammographic mass in the subareolar breast. IMPRESSION: ACR-BI-RADS CATEGORY 3: PROBABLY BENIGN, TARGETED ULTRASOUND ACR-BI-RADS CATEGORY 3: PRO BABLY BENIGN 1. The larger 13 mm circumscribed mass in the anterior retroareolar right breast seen mammographical ly correlates with a benign anechoic simple cyst on ultrasound. This is benign and no further close follow-up is needed at this time. 2. The second possible smaller mass in the subareolar right breast seen mammographically on the CC v iew may correlate with a possible complicated cyst in the 3:00 periareolar right breast on ultrasound . However, given the complicated nature, a short interval follow-up right diagnostic mammogram and r epeat targeted ultrasound is recommend to ensure stability in 6 months. These results and recommendations were with a discussed with the patient at the time of the exam. Approximately 10% of breast cancers are not detected with mammography. A negative mammographic report should not delay biopsy if a clinically suggestive mass is present. Noni Cristobal M.D. ay/:12/15/2016 11:27:07 Physicist Nuclear: Socorro MCLEOD(Norberto)(Aaliyah), [facility] letter sent: Follow Up Recommended 3 BI-RADS Code: ACR-BI-RADS Category 3: Probably Benign Ultrasound BI-RADS: ACR-BI-RADS Category 3: Pr obably Benign
== END | disposition home or self-care (01) ==
LOC: C.MAMM 10:18
PROVIDERS: ATTEND Internal Medicine
DX: N64.89 Other specified disorders of breast (principal); N63 Unspecified lump in breast

== ENCOUNTER 2017-02-12 09:39 | Emergency (ER) | payer OTHER ==
[~2017-02-12] VITALS: Ht 167.6 cm; Wt 99.1 kg
[~2017-02-12 09:39] MED LIST changes: -APIX1TAB3 PO; -FURO-85 PO; -MULT60CA PO; -ONDA4TAB10 SL
[2017-02-12 09:41] VITALS: TEMP 37.2; Ht 167.6 cm; Wt 99.1 kg
[2017-02-12] MEDS ORDERED: SODIUM CHLORIDE 0.9% 1000ML 1,000 ML IV STA (09:53)
[2017-02-12] MEDS ORDERED: ONDANSETRON INJ 2 MG/ML 2 ML VIAL IV STA (09:53)
[2017-02-12] MEDS ORDERED: DiphenhydrAMINE HCL 50 MG/ML VIAL IV STA (09:53)
[2017-02-12 10:09] LABS: BASO % 0.2 %; BASO ABS # 0.02 K/uL (0-0.2); COMPLETE YES; EOS % 0.6 %; HEMATOCRIT 43.8 % (37-47); IG% 0.2 %; LYMPH ABS # 2.89 K/uL (1.2-3.4); MEAN CELL VOLUME 86.1 fL (80-100); MEAN CORPUSCULAR HEMOGLOBIN 27.9 pg (25-34); MEAN CORPUSCULAR HGB CONC 32.4 g/dl (32-36); MEAN PLATELET VOLUME 9.4 fL (7.4-10.4); MONO % 5.4 %; NEUT % 64.6 %; PLATELET COUNT 243 K/uL (130-400); RED BLOOD COUNT 5.09 M/uL (4.2-5.4); WHITE BLOOD COUNT 9.96 K/uL (4.8-10.8)
--- NOTE | 2017-02-12 10:11 | EMERGENCY ROOM VISIT NOTE ---
History Report prepared by Damion: Yasmin Burroughs Under the Supervision of: Dr. Roby Powell M.D. 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 The patient woke up this morning and felt fine. She drank her coffee and read the newspaper. She bent over to put the newspaper away and that is when her symptoms began. She is feeling lightheaded and feels like she is going to pass out. The patient denies feeling like the room is spinning. Her symptoms are worse when she stands up. Positive nausea, vomiting. Negative LOC, fevers, chills, blurry vision, palpitations, chest pain, shortness of breath, cough, and abdominal pain. Pt denies recent trauma, falls, injuries, or antibiotic use. She is on Eliquis for a previous DVT. 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 A total of ten systems were reviewed and were otherwise negative. Past Medical & Surgical Medical Problems: (1) Cellulitis, leg (2) Hypertension (3) Hypothyroidism (4) Migraine (5) Right leg DVT Surgical Problems: (1) History of hysterectomy (2) Hx of tubal ligation Family History Cancer Heart disease Social History Smoking Status: Never Smoker Alcohol Use: none Drug Use: none Marital Status: Housing Status: lives with significant other Occupation Status: retired Current/Historical Medications Scheduled Apixaban (Eliquis), 5 MG PO BID Ascorbic Acid (Vitamin C), 1 TAB PO DAILY Calcium (Calcium), 1 TAB PO DAILY Fish Oil ([place]-3), 2 CAP PO DAILY Furosemide (Lasix), 20 MG PO DAILY Glucosamine Sulfate (Glucosamine), 500 MG PO QAM Levothyroxine Sodium (Synthroid), 75 MCG PO DAILYBB Losartan Potassium (Cozaar), 100 MG PO QAM Multiple Vitamins W/ Minerals (Preservision Areds 2), 1 CAP PO BID Ondasetron Odt (Zofran Odt), 4 MG SL Q6H Allergies Coded Allergies: Morphine (Verified Adverse Reaction, Severe, vomit, 02/12/17) Physical Exam Vital Signs Date Time Temp Pulse Resp B/P (MAP) Pulse Ox O2 Delivery O2 Flow Rate FiO2 02/12/17 11:30 67 18 133/108 98 Room Air 02/12/17 11:25 140/109 02/12/17 11:09 73 17 92 02/12/17 11:00 159/71 02/12/17 10:39 78 23 98 02/12/17 10:30 159/71 02/12/17 10:27 97 Nasal Cannula 2.0 02/12/17 10:27 167/65 02/12/17 10:26 71 20 167/65 88 Room Air 02/12/17 10:09 70 23 97 02/12/17 10:01 158/128 02/12/17 09:53 68 02/12/17 09:52 165/97 02/12/17 09:45 99 Room Air 02/12/17 09:41 37.2 74 20 179/86 99 Room Air Physical Exam GENERAL: Awake, alert, well-appearing, NAD HENT: Normocephalic, atraumatic. EYES: Normal conjunctiva. Sclera non-icteric. NECK: Supple. No nuchal rigidity. FROM. RESPIRATORY: CTAB, no rhonchi, wheezing, crackles CARDIAC: RRR, no MRG ABDOMEN: Soft, NTND, BS+ MSK: No chest wall TTP. RLE swelling greater than left, chronic. No erythema or calor. NEURO: GCS 15, CN 2-12 intact, moves all 4s on command. Good finger to nose, no drift, 5/5 upper extremity strength, 5/5 lower extremity strength, no sensory deficits. SKIN: No rash or jaundice noted. Medical Decision & Procedures ER Provider Diagnostic Interpretation: Radiology results as stated below per my review and radiologist interpretation: SINGLE VIEW CHEST CLINICAL HISTORY: Generalized weakness. FINDINGS: An AP, portable, upright chest radiograph is obtained. No prior studies are available for comparison at the time of dictation. The examination is degraded by portable technique and patient rotation. The heart is top normal for projection. There is atherosclerotic calcification of the thoracic aorta. Nonspecific interstitial thickening is likely chronic. No airspace consolidation, large pleural effusion, or pneumothorax is seen. The skeletal structures are osteopenic. The bony thorax is grossly intact. Calcific tendinopathy is noted in the left shoulder. IMPRESSION: No acute cardiopulmonary abnormality. Electronically signed by: Cyril Dill M.D. 02/12/2017 10:18 AM Dictated Date/Time: 02/12/2017 10:17 AM Laboratory Results 02/12/17 09:50 Red Blood Count 5.09, Mean Corpuscular Volume 86.1, Mean Corpuscular Hemoglobin 27.9, Mean Corpuscular Hemoglobin Concent 32.4, Mean Platelet Volume 9.4, Neutrophils (%) (Auto) 64.6, Lymphocytes (%) (Auto) 29.0, Monocytes (%) (Auto) 5.4, Eosinophils (%) (Auto) 0.6, Basophils (%) (Auto) 0.2, Neutrophils # (Auto) 6.43, Lymphocytes # (Auto) 2.89, Monocytes # (Auto) 0.54, Eosinophils # (Auto) 0.06, Basophils # (Auto) 0.02 02/12/17 09:50 Test 02/12/17 09:50 02/12/17 11:25 White Blood Count 9.96 K/uL (4.8-10.8) Red Blood Count 5.09 M/uL (4.2-5.4) Hemoglobin 14.2 g/dL (12.0-16.0) Hematocrit 43.8 % (37-47) Mean Corpuscular Volume 86.1 fL (80-100) Mean Corpuscular Hemoglobin 27.9 pg (25-34) Mean Corpuscular Hemoglobin Concent 32.4 g/dl (32-36) Platelet Count 243 K/uL (130-400) Mean Platelet Volume 9.4 fL (7.4-10.4) Neutrophils (%) (Auto) 64.6 % Lymphocytes (%) (Auto) 29.0 % Monocytes (%) (Auto) 5.4 % Eosinophils (%) (Auto) 0.6 % Basophils (%) (Auto) 0.2 % Neutrophils # (Auto) 6.43 K/uL (1.4-6.5) Lymphocytes # (Auto) 2.89 K/uL (1.2-3.4) Monocytes # (Auto) 0.54 K/uL (0.11-0.59) Eosinophils # (Auto) 0.06 K/uL (0-0.5) Basophils # (Auto) 0.02 K/uL (0-0.2) RDW Standard Deviation 39.9 fL (36.4-46.3) RDW Coefficient of Variation 12.6 % (11.5-14.5) Immature Granulocyte % (Auto) 0.2 % Immature Granulocyte # (Auto) 0.02 K/uL (0.00-0.02) Prothrombin Time 11.0 SECONDS (9.0-12.0) Prothromb Time International Ratio 1.0 (0.9-1.1) Activated Partial Thromboplast Time 24.7 SECONDS (21.0-31.0) Partial Thromboplastin Ratio 1.0 Anion Gap 8.0 mmol/L (3-11) Est Creatinine Clear Calc Drug Dose 70.8 ml/min Estimated GFR () 83.7 Estimated GFR (Non- 72.2 BUN/Creatinine Ratio 14.8 (10-20) Calcium Level 9.1 mg/dl (8.5-10.1) Magnesium Level 2.0 mg/dl (1.8-2.4) Total Bilirubin 0.6 mg/dl (0.2-1) Direct Bilirubin 0.2 mg/dl (0-0.2) Aspartate Amino Transf (AST/SGOT) 14 U/L (15-37) Alanine Aminotransferase (ALT/SGPT) 15 U/L (12-78) Alkaline Phosphatase 76 U/L (45-117) Troponin I < 0.015 ng/ml (0-0.045) Total Protein 6.8 gm/dl (6.4-8.2) Albumin 3.4 gm/dl (3.4-5.0) Lipase 115 U/L (73-393) Thyroid Stimulating Hormone (TSH) 1.220 uIu/ml (0.300-4.500) Urine Color YELLOW Urine Appearance CLEAR (CLEAR) Urine pH 7.5 (4.5-7.5) Urine Specific [place] 1.018 (1.000-1.030) Urine Protein NEG (NEG) Urine Glucose (UA) NEG (NEG) Urine Ketones TRACE (NEG) Urine Occult Blood NEG (NEG) Urine Nitrite NEG (NEG) Urine Bilirubin NEG (NEG) Urine Urobilinogen NEG (NEG) Urine Leukocyte Esterase SMALL (NEG) Urine WBC (Auto) 1-5 /hpf (0-5) Urine RBC (Auto) 0-4 /hpf (0-4) Urine Hyaline Casts (Auto) 1-5 /lpf (0-5) Urine Epithelial Cells (Auto) >30 /lpf (0-5) Urine Bacteria (Auto) NEG (NEG) Laboratory results reviewed by me Medications Administered Medications (Trade) Dose Ordered Sig/Vega Route Start Time Stop Time Status Last Admin Dose Admin Sodium Chloride 1,000 ml @ 999 mls/hr Q1H1M STAT IV 02/12/17 09:53 02/12/17 10:53 DC 02/12/17 10:03 999 MLS/HR Ondansetron HCl (Zofran Inj) 4 mg NOW STAT IV 02/12/17 09:53 02/12/17 09:54 DC 02/12/17 10:02 4 MG Diphenhydramine HCl (Benadryl Inj) 12.5 mg NOW STAT IV 02/12/17 09:53 02/12/17 09:55 DC 02/12/17 10:02 12.5 MG Sodium Chloride 500 ml @ 500 mls/hr Q1H STAT IV 02/12/17 10:46 02/12/17 11:45 DC 02/12/17 11:30 500 MLS/HR ECG Indication: nausea Rate (beats per minute): 71 Rhythm: normal sinus Findings: no ectopy, other (normal intervals, normal axis) ED Course 0940: The patient was evaluated in room B2. A complete history and physical exam was performed. 0953: Benadryl 12.5 mg IV, Zofran 4 mg IV, NSS 1000 ml @ 999 mls/hr IV 1042: Upon reevaluation the patient feeling better. 1046: NSS 500 ml @ 500 mls/hr IV 1133: I reassessed the patient at this time. She is feeling better and resting comfortably. I discussed the results and treatment plan with the patient. I answered all pertaining questions that she had. She expressed understanding and verbalized agreement. The patient will be discharged home. 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 Differential diagnosis: Etiologies such as benign positional vertigo, dehydration, hypovolemia, anemia, tumor, infection, hypoglycemia, electrolyte abnormalities, cardiac sources, intracerebral event, toxicologic, neurologic, as well as others were entertained. Patient was seen and evaluated the bedside. Patient denies any chest pain or shortness of breath. Patient did have positional lightheadedness. Patient is denies any trauma. Patient does take Elequis for a prior diagnosed right lower extremity DVT. No neuro deficits. Denies vertiginous symptoms. Patient had supportive care and additional blood work, troponin, EKG. Patient's EKG nonischemic patient has negative troponin. Patient labs fairly unremarkable. TSH normal. Patient was given fluids and feels improved after that and medications. Patient was able tolerate by mouth. Patient was able to ambulate for ambulation. Patient was told that she needs to be careful with position changes as this may result lightheadedness. Patient was given strict follow-up , discharge, return precautions. Patient agreed with plan of care patient was safely discharged home. Medication Reconcilliation Current Medication List: was personally reviewed by me Blood Pressure Screening Patient's blood pressure: Elevated blood pressure Blood pressure disposition: Referred to PCP Impression Primary Impression: Lightheaded Scribe Attestation The scribe's documentation has been prepared under my direction and personally reviewed by me in its entirety. I confirm that the note above accurately reflects all work, treatment, procedures, and medical decision making performed by me. Departure Information Dispostion Home / Self-Care Prescriptions Ondasetron Odt (ZOFRAN ODT) 4 Mg Tab 4 MG SL Q6H for Nausea, #6 TAB Prov: Roby Powell M.D. 02/12/17 Referrals Yoan Medrano M.D. (PCP) Forms HOME CARE DOCUMENTATION FORM, IMPORTANT VISIT INFORMATION Patient Instructions Dizziness Balance Probs Fainting, My [facility] Additional Instructions Please return to the emergency department if you have worsening or recurrent symptoms not amenable to at-home treatment. Please call for a follow-up appointment with her primary care physician. Please take your medications as prescribed. If you have other concerns and/or complaints please feel free to also call your primary care physician's office or return the ED for further evaluation, management, and treatment. You have been examined and treated today on an emergency basis only. This is not a substitute for, or an effort to provide, complete comprehensive medical care. It is impossible to recognize and treat all injuries or illnesses in a single emergency department visit. It is therefore important that you follow up closely with [facility]. Call as soon as possible for an appointment. Thank you for your time and consideration. I look forward to speaking with you again soon. Please don't hesitate to call us if you have any questions.
[2017-02-12 10:17] LABS: ALT/SGPT 15 U/L (12-78); BLOOD UREA NITROGEN 12 mg/dl (7-18); BUN/CREATININE RATIO 14.8 (10-20); CALCIUM 9.1 mg/dl (8.5-10.1); CARBON DIOXIDE 25 mmol/L (21-32); CHLORIDE 107 mmol/L (98-107); CREATININE 0.79 mg/dl (0.60-1.20); GLUCOSE 165 mg/dl (70-99); POTASSIUM 3.8 mmol/L (3.5-5.1); SODIUM 140 mmol/L (136-145)
--- NOTE | 2017-02-12 10:19 | DIAGNOSTIC IMAGING REPORT ---
SINGLE VIEW CHEST CLINICAL HISTORY: Generalized weakness. FINDINGS: An AP, portable, upright chest radiograph is obtained. No prior studies are available for comparison at the time of dictation. The examination is degraded by portable technique and patient rotation. The heart is top normal for projection. There is atherosclerotic calcification of the thoracic aorta. Nonspecific interstitial thickening is likely chronic. No airspace consolidation, large pleural effusion, or pneumothorax is seen. The skeletal structures are osteopenic. The bony thorax is grossly intact. Calcific tendinopathy is noted in the left shoulder. IMPRESSION: No acute cardiopulmonary abnormality. Electronically signed by: Cyril Dill M.D. 02/12/2017 10:18 AM Dictated Date/Time: 02/12/2017 10:17 AM
[2017-02-12 10:27] VITALS: O2SAT 97
[2017-02-12 10:28] LABS: ALKALINE PHOSPHATASE 76 U/L (45-117); AST/SGOT 14 U/L (15-37)
[2017-02-12] MEDS ORDERED: FURO-85 PO (10:35)
[2017-02-12] MEDS ORDERED: APIX1TAB3 PO (10:35)
[2017-02-12] MEDS ORDERED: MULT60CA PO (10:35)
[2017-02-12] MEDS ORDERED: SODIUM CHLORIDE 0.9% 500ML 500 ML IV STA (10:46)
[2017-02-12 11:30] VITALS: BP 133/108; PULSE 67; O2SAT 98
[2017-02-12] MEDS ORDERED: ONDA4TAB10 SL (11:38)
[2017-02-12 11:48] LABS: MANUAL MICROSCOPIC REQUIRED? NO; REVIEW REQ? NO; URINE APPEARANCE CLEAR (CLEAR); URINE BILIRUBIN NEG (NEG); URINE COLOR YELLOW; URINE EPITHELIAL CELL AUTO >30 /lpf (0-5); URINE NITRITE NEG (NEG); URINE PH 7.5 (4.5-7.5); URINE SPECIFIC GRAVITY 1.018 (1.000-1.030); UROBILINOGEN NEG (NEG)
== END 2017-02-12 11:58 | disposition home or self-care (01) ==
LOC: EDBD 09:39 → C.EDB 09:40
DX: R42 Dizziness and giddiness (principal); Z79.01 Long term (current) use of anticoagulants; Z86.718 Personal history of other venous thrombosis and embolism; I10 Essential (primary) hypertension; E03.9 Hypothyroidism, unspecified; Z90.710 Acquired absence of both cervix and uterus; Z98.51 Tubal ligation status; Z80.9 Family history of malignant neoplasm, unspecified; Z79.899 Other long term (current) drug therapy

== ENCOUNTER → 2017-02-15 | Outpatient (CLI) | payer OTHER ==
[~2017-02-15] MED LIST changes: -AMOX1TAB43 PO; +APIX1TAB3 PO; -ELQ25 PO; +FURO-85 PO; -MULT-190 PO; +MULT60CA PO; +ONDA4TAB10 SL
--- NOTE | 2017-02-15 10:10 | DIAGNOSTIC IMAGING REPORT ---
ULTRASOUND RIGHT LOWER EXTREMITY VENOUS CLINICAL HISTORY: Right leg pain. COMPARISON STUDY: Right lower extremity venous ultrasound dated 09/18/2015. TECHNIQUE: Real-time, grayscale, and color Doppler sonography of the deep veins of the right lower extremity was performed from the inguinal crease to the calf. Compression and augmentation were utilized. FINDINGS: There is mild stranding identified within the right common femoral as well as the proximal superficial femoral veins suggesting trace chronic thrombus. The mid to distal portions of the superficial femoral vein as well as the popliteal vein are patent and normally compressible. The greater saphenous vein at the junction with the common femoral vein are clear. Trace chronic thrombus is also seen within the profunda femoris vein. The visualized calf veins are patent. IMPRESSION: 1. Trace and chronic appearing deep venous thrombosis is seen within the right common femoral vein as well as the proximal right superficial femoral veins. 2. There is no convincing sonographic evidence of acute deep venous thrombosis identified in the right lower extremity. Electronically signed by: Cyril Dill M.D. 02/15/2017 10:09 AM Dictated Date/Time: 02/15/2017 10:06 AM
== END | disposition home or self-care (01) ==
LOC: C.ULTR 09:29
PROVIDERS: ATTEND Internal Medicine
DX: I82.401 Acute embolism and thrombosis of unspecified deep veins of right lower extremity (principal)

== ENCOUNTER → 2017-03-15 | Outpatient (CLI) | payer OTHER ==
[2017-03-15 12:30] LABS: BLOOD UREA NITROGEN 12 mg/dl (7-18)
== END | disposition home or self-care (01) ==
LOC: C.LABBFT 08:39
PROVIDERS: ATTEND Internal Medicine
DX: R42 Dizziness and giddiness (principal)

== ENCOUNTER → 2017-03-16 | Outpatient (CLI) | payer OTHER ==
[~2017-03-16] MED LIST changes: +OPTIRAY 320 IV PRN
--- NOTE | 2017-03-16 15:19 | DIAGNOSTIC IMAGING REPORT ---
CT OF THE HEAD WITH AND WITHOUT CONTRAST CLINICAL HISTORY: Dizziness. COMPARISON STUDY: No previous studies for comparison. TECHNIQUE: Axial images of the head were obtained before and after intravenous administration of 94 cc of Optiray 320 IV. FINDINGS: No acute intracranial hemorrhage, midline shift or mass effect is present. Ventricular system is normal. Basilar cisterns are patent. There are no extra-axial collections. Branch-white differentiation is maintained. There are no findings to suggest acute dural sinus thrombosis or acute territorial infarct. There is no intracranial mass or pathologic enhancement. Left frontal sinus is opacified. Mastoid air cells are clear. No cerebellopontine angle mass is identified on this exam. IMPRESSION: 1. No acute intracranial findings. 2. No intracranial mass or pathologic enhancement. 3. Opacified left frontal sinus, likely chronic. Electronically signed by: Jeison Maynard M.D. 03/16/2017 3:18 PM Dictated Date/Time: 03/16/2017 3:15 PM
== END | disposition home or self-care (01) ==
LOC: C.CTS 14:31
PROVIDERS: ATTEND Internal Medicine
DX: R42 Dizziness and giddiness (principal); J34.89 Other specified disorders of nose and nasal sinuses

== ENCOUNTER → 2017-05-10 | Outpatient (CLI) | payer OTHER ==
[~2017-05-10] MED LIST changes: -OPTIRAY 320 IV PRN
[2017-05-10 12:49] LABS: HEMOGLOBIN A1C 5.7 % (4.5-5.6)
[2017-05-10 13:54] LABS: ALBUMIN 3.5 gm/dl (3.4-5.0); ALKALINE PHOSPHATASE 67 U/L (45-117); ALT/SGPT 18 U/L (12-78); AST/SGOT 12 U/L (15-37); BLOOD UREA NITROGEN 11 mg/dl (7-18); CALCIUM 8.8 mg/dl (8.5-10.1); CARBON DIOXIDE 29 mmol/L (21-32); CREATININE 0.77 mg/dl (0.60-1.20); GLUCOSE 111 mg/dl (70-99); POTASSIUM 3.8 mmol/L (3.5-5.1); SODIUM 139 mmol/L (136-145); TOTAL PROTEIN 6.4 gm/dl (6.4-8.2)
[2017-05-10 14:06] LABS: CHOLESTEROL 167 mg/dl (0-200); LDL CHOLESTEROL CALCULATED 96 mg/dl
== END | disposition home or self-care (01) ==
LOC: C.LABBFT 07:30
PROVIDERS: ATTEND Internal Medicine
DX: E03.9 Hypothyroidism, unspecified (principal); R73.01 Impaired fasting glucose

== ENCOUNTER → 2017-06-21 | Outpatient (CLI) | payer OTHER ==
--- NOTE | 2017-06-21 15:23 | MAMMOGRAPHY REPORT ---
UNILATERAL RIGHT DIGITAL DIAGNOSTIC MAMMOGRAM TOMOSYNTHESIS WITH CAD AND TARGETED RIGHT ULTRASOUND: CLINICAL HISTORY: 76-year-old woman presents for follow-up in the right breast. 2 masses were previo usly identified on the spot compression views for which targeted ultrasound was performed and documen yoana a large simple cyst in the retroareolar right breast and smaller indeterminate solid versus cysti c mass in the 3:00 periareolar right breast. TECHNIQUE: Right breast tomosynthesis in addition to standard 2D mammography was performed. Current s tammy was also evaluated with a Computer Aided Detection (CAD) system. COMPARISON: Comparison is made to exams dated: 12/15/2016 ultrasound, 12/15/2016 mammogram, 12/03/2016 m ammogram, 12/03/2015 mammogram, 11/04/2014 mammogram, and 11/01/2013 mammogram - [facility]. BREAST COMPOSITION: There are scattered areas of fibroglandular density in the right breast. FINDINGS: There are mild vascular calcifications in the right breast. There is a dominant round circ umscribed 13 mm mass in the anterior retroareolar right breast, correlating with a previously documen yoana simple cyst on ultrasound. The second smaller mass in the immediate subareolar right breast is l ess conspicuous on both views and now currently measures approximately 5.5 mm in the CC projection, a lthough it is less well-seen and measuring is therefore less accurate. Nevertheless further evaluati on with ultrasound was performed. No other new masses, areas of distortion, suspicious calcification s or asymmetries are identified. Targeted ultrasound was performed in the retroareolar and periareolar right breast. A large simple c yst is again seen in the retroareolar right breast measuring 12.7 x 7.0 x 11.3 mm. A smaller oval pa rallel circumscribed hypoechoic solid versus cystic mass is again identified in the superficial 3:00 periareolar right breast measuring 3.1 x 2.0 x 3.2 mm. This has not significantly changed in size or appearance comparing to the prior ultrasound. However, given the hypoechoic nature longer stability is needed and another targeted ultrasound is recommended in 6 months to ensure longer stability. IMPRESSION: ACR-BI-RADS CATEGORY 3: PROBABLY BENIGN, TARGETED ULTRASOUND ACR-BI-RADS CATEGORY 3: PRO BABLY BENIGN 1. Stable size and mammographic appearance of the dominant circumscribed 13 mm mass in the retroareo lar right breast, correlating with a benign anechoic simple cyst on ultrasound. 2. A second smaller mass in the subareolar right breast mammographically is less conspicuous compari ng to the prior mammograms. A possible sonographic correlate in the 3:00 periareolar right breast is stable on ultrasound, measuring 3 mm. Given the hypoechoic nature another six-month follow-up targe yoana ultrasound is recommended to ensure at least one year of stability. Annual bilateral mammography will also be due at that time. These results and recommendations were discussed with the patient at the time of the exam. Approximately 10% of breast cancers are not detected with mammography. A negative mammographic report should not delay biopsy if a clinically suggestive mass is present. Noni Cristobal M.D. ay/:06/21/2017 11:22:51 Mechanical Developer Prover: Jaskaran MCLEOD(Norberto)(Aaliyah), [facility] letter sent: Follow Up Recommended 3 BI-RADS Code: ACR-BI-RADS Category 3: Probably Benign Ultrasound BI-RADS: ACR-BI-RADS Category 3: Pr obably Benign
== END | disposition home or self-care (01) ==
LOC: C.MAMM 10:35
PROVIDERS: ATTEND Internal Medicine
DX: N60.01 Solitary cyst of right breast (principal); N63.12 Unspecified lump in the right breast, upper inner quadrant

== ENCOUNTER 2024-01-27 19:43 | Inpatient (IN) ==
--- NOTE | 2024-01-27 20:01 | Emergency Department Note ---
Impression & Plan Sepsis, Acute UTI, Acute dehydration ED Provider Note NAME: Fabby TOLBERT AGE: 83 SEX: F : 1940 ARRIVES VIA: Ambulance INFORMANT: Patient, family ED PROVIDER(S): Roby Powell MD CHIEF COMPLAINT: Fatigue and lethargy MEDICAL DECISION MAKING: Patient presented due to concern for fever. IV was established and blood work was obtained. Patient was noted to have a white count of 14 and a procalcitonin and lactate were also ordered at the time of admission. Given the patient's elevated procalcitonin of 7.8 blood cultures were also obtained and the patient's antibiotics were switched from Rocephin to Zosyn. MRSA swab also obtained. BioFire is negative. Chest x-ray without obvious pneumonia. Initial lactate of 1.3. Normal hemoglobin and platelet count. Kidney function is unremarkable troponin is elevated at 32.7 but likely demand in nature. Patient denies any chest pains or shortness of breath. Urinalysis does appear to be grossly positive for infection. CT of the head negative. Chest x-ray by my read does not show obvious pneumonia. I did speak the on-call hospitalist service after discussing the findings with the patient the patient's shoulder at bedside. They are comfortable plan of care. Patient was admitted by Dr. Kendall. The patient did have improvement in her tachycardia after IV fluids and antipyretics. Patient also clinically appears improved. Discussion w/ other healthcare providers: Dr. Kendall inpatient medicine service Prior /Outside records reviewed: None Differential diagnosis: Dehydration, UTI, pneumonia, metabolic derangment, electrolyte abnormalities, hypovolemia, anemia, cellulitis among others were considered. Diagnostics, as interpreted by me: ECG:A-fib with RVR, rate of 110, normal QRS, left axis deviation no obvious ST elevations. Cardiac monitoring: An order was placed for continuous cardiac monitoring. The monitor shows a rate of 89 with sinus rhythm. Patient was placed on pulse oximetry Medical decision rules: None Imaging studies: I informally interpreted the patient's chest x-ray does not show obvious pneumonia or pneumothorax with formal report to follow. HPI: Patient presents due to concern for headache and feeling generally unwell. Patient states that her headache is frontal nonradiating. The patient does take blood thinners for known prior history of DVTs. Patient denies any falls or trauma. Patient reportedly had a fever upon arrival and was tachycardic. Patient denies any known prior history of A-fib.Patient states that she has had associated fatigue. Patient denies any urinary symptoms no rash no dysuria or blood in the urine. The patient does report that she has had a nonproductive cough. Patient denies any known sick contacts or any recent travel. PAST MEDICAL HISTORY: See Below PAST SURGICAL HISTORY: See Below SOCIAL HISTORY: See Below HOME MEDICATIONS: See Below ALLERGIES: See Below VITALS: See Below PHYSICAL EXAMINATION: GENERAL: Febrile but nontoxic in appearance. EYE EXAM: Normal conjunctiva. PERRL, no anisocoria and EOM's grossly intact w/o pain. OROPHARYNX: Moist mucus membranes, grossly normal dentition. NECK: Trachea midline, no stridor. LUNGS: Clear to auscultation. Normal chest wall mechanics. HEART: Irregular irregular and tachycardic, no MRG. ABDOMEN: Abdomen soft, non-tender, no masses, no rebound or guarding. BACK: No CVA TTP. SKIN: No rashes and no bruising. UPPER EXTREMITIES: Upper extremities are grossly normal. LOWER EXTREMITIES: Grossly normal, no edema. NEURO EXAM: A&O x3, cranial nerves II-XII grossly intact, normal speech, moves all 4 extremities. Past Med/Surg History Problem List (Updated 01/28/24 @ 19:38 by Roby Powell MD) Acute dehydration (Acute) Acute UTI (Acute) Sepsis (Acute) Sepsis due to urinary tract infection PAC (premature atrial contraction) Hypomagnesemia Hypokalemia Deep vein thrombosis 2016 R leg--was on eliquis, no longer on it Elevated troponin Right knee DJD Lower extremity edema Hypertension (Chronic) Hypothyroidism (Chronic) Right leg DVT (~2016) GERD (gastroesophageal reflux disease) Impaired fasting glucose (Chronic) Macular degeneration (Acute) Hyperlipidemia (Acute) Trapezius muscle spasm Low back pain Medical History (Updated 01/28/24 @ 19:38 by Roby Powell MD) Cholelithiases Gastritis determined by endoscopy 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 Rectocele Nausea and vomiting after administration of anesthetic agent Hypothyroidism Migraine Hypertension Surgical History History of total abdominal hysterectomy and bilateral salpingo-oophorectomy History of left breast biopsy benign History of dilatation and curettage History of bilateral tubal ligation History of open reduction and internal fixation (ORIF) procedure R ankle fx--hardware in place History of cholecystectomy History of tonsillectomy and adenoidectomy Hx of tubal ligation Family History Mother Breast cancer Father Coronary heart disease Tobacco use Myocardial infarction Brother Coronary heart disease Myocardial infarction Prostate cancer Sister Alzheimer disease Denies family history of Ovarian cancer Colorectal cancer Social History Smoking Status: Never smoker Second Hand Exposure: No (parents smoked); Do You Dip or Chew Tobacco: No; Hx Alcohol Use: No Hx Substance Use: No Preferred Language: Armenian Communication Ability: Effective Visual Impairment: Limited Hearing Ability: Normal Latex Caster Required: No Beliefs That Will Affect Care: None marital status: / Current Living Situation: Family Current Living Situation Comment: Lives with son current occupational status: retired 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 Other Information That Helps Us Care for You: No Feels Safe at Home: Yes Safety Concerns: Feels Safe At This Time Childhood Exposure to Second-Hand Smoke: Yes Diet: regular caffeine: Yes Dental Care, Regularly: Yes Physical Activity Frequency: Does not Exercise Seatbelt Use: always Sunscreen Use: Yes Assistive Devices: Glasses and Hearing Aid - Bilateral Allergies Allergies Allergy/AdvReac Type Severity Reaction Status Date / Time morphine AdvReac Severe vomit Verified 10/19/23 13:31 Home Meds Home Medications Medication Instructions Recorded Confirmed ascorbic acid (vitamin C) 500 mg 500 mg PO QAM 04/11/18 01/27/24 tablet (Vitamin C) calcium carbonate 600 mg-vitamin 1 tab PO QPM 04/11/18 01/27/24 D3 5 mcg (200 unit) capsule (Calcium 600 + D(3)) glucosamine sulfate 500 mg tablet 500 mg PO QAM 04/11/18 01/27/24 (Glucosamine) omega 3 350 mg-dha 235 mg-epa 90 1 cap PO BID 04/11/18 01/27/24 mg-fish oil 597 mg capsule,delay rel (Brown[place]-3) vit C 250 mg-vit E 90 mg-zinc 40 1 tab PO BID 04/11/18 01/27/24 mg-copper 1 [id number] capsule (PreserVision AREDS-2) Previous Rx's Medication Instructions Recorded meclizine 25 mg tablet 25 mg PO TID PRN dizziness #30 tabs 12/22/20 hydrochlorothiazide 25 mg tablet 25 mg PO DAILY #90 tabs 04/08/23 levothyroxine 75 mcg tablet 75 mcg PO DAILY #90 tabs 04/12/23 losartan 100 mg tablet 100 mg PO DAILY #90 tabs 04/12/23 apixaban 5 mg tablet (Eliquis) 5 mg PO BID #180 tabs 08/15/23 Results & Data (ED) Vital Signs Vital Signs - 24 hr 01/27/24 19:39 01/27/24 19:53 01/27/24 20:12 Temperature 38.6 C H Temperature Source Oral Pulse Rate 119 H 115 H 93 H Pulse Rate [Apical] Pulse Rhythm Irregular Respiratory Rate 26 H 26 H Respiratory Effort / Characteristics Respiratory Depth Respiratory Pattern Blood Pressure 153/75 H Blood Pressure [Right Arm] Blood Pressure Mean 101 Blood Pressure Mean [Right Arm] Blood Pressure Position [Right Arm] Pulse Oximetry 92 92 Oxygen Delivery Method Room Air Room Air Sepsis Recent Fever Within 48 Hours Yes Sepsis New/Unexplained Change in Mental Status No Sepsis Action Taken by Nursing Physician Notified 01/27/24 20:37 01/27/24 21:09 01/27/24 21:47 Temperature 38.6 C H 36.9 C 37.4 C Temperature Source Oral Oral Oral Pulse Rate Pulse Rate [Apical] 101 H 91 H 81 Pulse Rhythm Respiratory Rate 26 H 22 24 Respiratory Effort / Characteristics Respiratory Depth Respiratory Pattern Blood Pressure Blood Pressure [Right Arm] 124/68 124/68 127/61 Blood Pressure Mean Blood Pressure Mean [Right Arm] 86 86 83 Blood Pressure Position [Right Arm] Pulse Oximetry 94 94 93 Oxygen Delivery Method Room Air Room Air Room Air Sepsis Recent Fever Within 48 Hours Sepsis New/Unexplained Change in Mental Status Sepsis Action Taken by Nursing 01/27/24 22:00 Temperature Temperature Source Pulse Rate Pulse Rate [Apical] 50 L Pulse Rhythm Respiratory Rate 19 Respiratory Effort / Characteristics Non-Labored Spontaneous Respiratory Depth Normal Respiratory Pattern Regular Blood Pressure Blood Pressure [Right Arm] 127/65 Blood Pressure Mean Blood Pressure Mean [Right Arm] 85 Blood Pressure Position [Right Arm] Semi-fowlers Pulse Oximetry 97 Oxygen Delivery Method Room Air Sepsis Recent Fever Within 48 Hours Sepsis New/Unexplained Change in Mental Status Sepsis Action Taken by Jail Medications Current Medication List: was personally reviewed by me Laboratory Data Attestation: I reviewed the patient's lab results. 01/28/24 02:14 01/28/24 02:14 Lab Results 01/27/24 01/27/24 01/27/24 Range/Units 19:55 19:58 20:17 WBC 14.92 H (4.8-10.8) K/ul RBC 4.53 (4.20-5.40) M/uL Hgb 13.4 (12.0-16.0) g/dl Hct 38.8 (37.0-47.0) % MCV 85.7 (80.0-100.0) fL MCH 29.6 (25.0-34.0) pg MCHC 34.5 (32.0-36.0) g/dL RDW Std Deviation 40.0 (36.4-46.3) fL RDW Coeff of Manjula 12.8 (11.5-14.5) % Plt Count 260 (130-400) K/uL MPV 10.1 (9.4-12.4) fL Immature Gran % (Auto) 0.8 % Neut % (Auto) 85.8 % Lymph % (Auto) 5.9 % Gentry % (Auto) 7.2 % Eos % (Auto) 0.0 % Baso % (Auto) 0.3 % Neut # (Auto) 12.81 H (1.40-6.50) K/uL Lymph # (Auto) 0.88 L (1.20-3.40) K/uL Gentry # (Auto) 1.07 H (0.11-0.59) K/uL Eos # (Auto) 0.00 (0.00-0.50) K/uL Baso # (Auto) 0.04 (0.00-0.20) K/uL Immature Gran # (Auto) 0.12 (0.01-0.20) K/uL Sodium 134 L (136-145) mmol/L Potassium TNP Chloride 102 (98-107) mmol/L Carbon Dioxide 22 (21-32) mmol/L Anion Gap 10 (3-11) BUN 29 H (6-23) mg/dl Creatinine 1.07 (0.6-1.2) mg/dl Est Cr Clr Drug Dosing 45.6 ml/min Est GFR ( Amer) 55.2 ml/min Est GFR (Non-Af Amer) 47.6 ml/min BUN/Creatinine Ratio 27.1 H (10-20) Glucose 158 H (70-99(Fasting)) mg/dl Lactate 1.3 (0.4-2.0) mmol/L Calcium 8.9 (8.6-10.3) mg/dl Magnesium 1.8 (1.7-2.4) mg/dl Total Bilirubin 0.9 (0.2-1.0) mg/dl Direct Bilirubin TNP AST TNP ALT 16 (7-52) U/L Alkaline Phosphatase 59 (34-104) U/L Troponin I High Sens 32.7 H (0-14) pg/ml Total Protein 6.4 (6.0-8.3) gm/dl Albumin 3.3 L (3.4-5.0) gm/dl Procalcitonin 7.83 H (0-0.5) ng/ml Urine Color Urine Appearance (Clear) Urine pH (4.5-7.5) Ur Specific Victoria (1.000-1.030) Urine Protein (Negative) Urine Glucose (UA) (Negative) Urine Ketones (Negative) Urine Blood (Negative) Urine Nitrite (Negative) Urine Bilirubin (Negative) Urine Urobilinogen (Negative) Ur Leukocyte Esterase (Negative) Urine WBC (Auto) (0-5) /hpf Urine RBC (Auto) (0-2) /hpf U Hyaline Cast (Auto) (0-2) /lpf U Epithel Cells (Auto) (0-2) /hpf Urine Bacteria (Auto) (None Seen) Nasal Screen MRSA (PCR) (Negative) Adenovirus (PCR) Not Detected (NotDetected) B. pertussis DNA (PCR) Not Detected (NotDetected) B.parapertussis DNA PCR Not Detected (NotDetected) C. pneumoniae DNA (PCR) Not Detected (NotDetected) Coronavirus OC43 (PCR) Not Detected (NotDetected) Coronavirus HKU1 (PCR) Not Detected (NotDetected) Coronavirus 229E (PCR) Not Detected (NotDetected) SARS-CoV-2 (PCR) Not Detected (NotDetected) Coronavirus NL63 (PCR) Not Detected (NotDetected) Enterobacterales (PCR) (NotDetected) E. coli (PCR) (NotDetected) Human Metapneumovir PCR Not Detected (NotDetected) Influenza Type A (PCR) Not Detected (NotDetected) Influenza Type B (PCR) Not Detected (NotDetected) M. pneumoniae (PCR) Not Detected (NotDetected) Parainfluenza 1 (PCR) Not Detected (NotDetected) Parainfluenza 2 (PCR) Not Detected (NotDetected) Parainfluenza 3 (PCR) Not Detected (NotDetected) Parainfluenza 4 (PCR) Not Detected (NotDetected) RSV (PCR) Not Detected (NotDetected) Entero/Rhino (PCR) Not Detected (NotDetected) mcr-1 Colistin Res Gene PCR (NotDetected) blaIMP Car res Gene PCR (NotDetected) KPC-Carbap Res Gene PCR (NotDetected) blaNDM Car Res Gene PCR (NotDetected) OXA-48 Carbapenem Resis Gene (PCR) (NotDetected) blaVIM Car Res Gene PCR (NotDetected) CTX-M Gene Resistance (PCR) (NotDetected) Bld Cult ID Panel PCR (NotDetected) 01/27/24 01/27/24 01/27/24 Range/Units 21:05 21:18 21:27 WBC (4.8-10.8) K/ul RBC (4.20-5.40) M/uL Hgb (12.0-16.0) g/dl Hct (37.0-47.0) % MCV (80.0-100.0) fL MCH (25.0-34.0) pg MCHC (32.0-36.0) g/dL RDW Std Deviation (36.4-46.3) fL RDW Coeff of Manjual (11.5-14.5) % Plt Count (130-400) K/uL MPV (9.4-12.4) fL Immature Gran % (Auto) % Neut % (Auto) % Lymph % (Auto) % Gentry % (Auto) % Eos % (Auto) % Baso % (Auto) % Neut # (Auto) (1.40-6.50) K/uL Lymph # (Auto) (1.20-3.40) K/uL Gentry # (Auto) (0.11-0.59) K/uL Eos # (Auto) (0.00-0.50) K/uL Baso # (Auto) (0.00-0.20) K/uL Immature Gran # (Auto) (0.01-0.20) K/uL Sodium (136-145) mmol/L Potassium 3.3 L Chloride (98-107) mmol/L Carbon Dioxide (21-32) mmol/L Anion Gap (3-11) BUN (6-23) mg/dl Creatinine (0.6-1.2) mg/dl Est Cr Clr Drug Dosing ml/min Est GFR ( Amer) ml/min Est GFR (Non-Af Amer) ml/min BUN/Creatinine Ratio (10-20) Glucose (70-99(Fasting)) mg/dl Lactate (0.4-2.0) mmol/L Calcium (8.6-10.3) mg/dl Magnesium (1.7-2.4) mg/dl Total Bilirubin (0.2-1.0) mg/dl Direct Bilirubin 0.2 AST 16 ALT (7-52) U/L Alkaline Phosphatase (34-104) U/L Troponin I High Sens (0-14) pg/ml Total Protein (6.0-8.3) gm/dl Albumin (3.4-5.0) gm/dl Procalcitonin (0-0.5) ng/ml Urine Color Yellow Urine Appearance Cloudy A (Clear) Urine pH 5.5 (4.5-7.5) Ur Specific Victoria 1.013 (1.000-1.030) Urine Protein 1+ H (Negative) Urine Glucose (UA) Negative (Negative) Urine Ketones Trace H (Negative) Urine Blood 1+ H (Negative) Urine Nitrite Positive A (Negative) Urine Bilirubin Negative (Negative) Urine Urobilinogen Negative (Negative) Ur Leukocyte Esterase 3+ H (Negative) Urine WBC (Auto) >50 H (0-5) /hpf Urine RBC (Auto) 3-5 H (0-2) /hpf U Hyaline Cast (Auto) 11-20 H (0-2) /lpf U Epithel Cells (Auto) 0-2 (0-2) /hpf Urine Bacteria (Auto) 4+ H (None Seen) Nasal Screen MRSA (PCR) (Negative) Adenovirus (PCR) (NotDetected) B. pertussis DNA (PCR) (NotDetected) B.parapertussis DNA PCR (NotDetected) C. pneumoniae DNA (PCR) (NotDetected) Coronavirus OC43 (PCR) (NotDetected) Coronavirus HKU1 (PCR) (NotDetected) Coronavirus 229E (PCR) (NotDetected) SARS-CoV-2 (PCR) (NotDetected) Coronavirus NL63 (PCR) (NotDetected) Enterobacterales (PCR) DETECTED A (NotDetected) E. coli (PCR) DETECTED A (NotDetected) Human Metapneumovir PCR (NotDetected) Influenza Type A (PCR) (NotDetected) Influenza Type B (PCR) (NotDetected) M. pneumoniae (PCR) (NotDetected) Parainfluenza 1 (PCR) (NotDetected) Parainfluenza 2 (PCR) (NotDetected) Parainfluenza 3 (PCR) (NotDetected) Parainfluenza 4 (PCR) (NotDetected) RSV (PCR) (NotDetected) Entero/Rhino (PCR) (NotDetected) mcr-1 Colistin Res Gene PCR Not Detected (NotDetected) blaIMP Car res Gene PCR Not Detected (NotDetected) KPC-Carbap Res Gene PCR Not Detected (NotDetected) blaNDM Car Res Gene PCR Not Detected (NotDetected) OXA-48 Carbapenem Resis Gene (PCR) Not Detected (NotDetected) blaVIM Car Res Gene PCR Not Detected (NotDetected) CTX-M Gene Resistance (PCR) Not Detected (NotDetected) Bld Cult ID Panel PCR See PCR Comment (NotDetected) 01/27/24 01/27/24 Range/Units 21:47 22:04 WBC (4.8-10.8) K/ul RBC (4.20-5.40) M/uL Hgb (12.0-16.0) g/dl Hct (37.0-47.0) % MCV (80.0-100.0) fL MCH (25.0-34.0) pg MCHC (32.0-36.0) g/dL RDW Std Deviation (36.4-46.3) fL RDW Coeff of Manjula (11.5-14.5) % Plt Count (130-400) K/uL MPV (9.4-12.4) fL Immature Gran % (Auto) % Neut % (Auto) % Lymph % (Auto) % Gentry % (Auto) % Eos % (Auto) % Baso % (Auto) % Neut # (Auto) (1.40-6.50) K/uL Lymph # (Auto) (1.20-3.40) K/uL Gentry # (Auto) (0.11-0.59) K/uL Eos # (Auto) (0.00-0.50) K/uL Baso # (Auto) (0.00-0.20) K/uL Immature Gran # (Auto) (0.01-0.20) K/uL Sodium (136-145) mmol/L Potassium Chloride (98-107) mmol/L Carbon Dioxide (21-32) mmol/L Anion Gap (3-11) BUN (6-23) mg/dl Creatinine (0.6-1.2) mg/dl Est Cr Clr Drug Dosing ml/min Est GFR ( Amer) ml/min Est GFR (Non-Af Amer) ml/min BUN/Creatinine Ratio (10-20) Glucose (70-99(Fasting)) mg/dl Lactate (0.4-2.0) mmol/L Calcium (8.6-10.3) mg/dl Magnesium (1.7-2.4) mg/dl Total Bilirubin (0.2-1.0) mg/dl Direct Bilirubin AST ALT (7-52) U/L Alkaline Phosphatase (34-104) U/L Troponin I High Sens 30.6 H (0-14) pg/ml Total Protein (6.0-8.3) gm/dl Albumin (3.4-5.0) gm/dl Procalcitonin (0-0.5) ng/ml Urine Color Urine Appearance (Clear) Urine pH (4.5-7.5) Ur Specific Victoria (1.000-1.030) Urine Protein (Negative) Urine Glucose (UA) (Negative) Urine Ketones (Negative) Urine Blood (Negative) Urine Nitrite (Negative) Urine Bilirubin (Negative) Urine Urobilinogen (Negative) Ur Leukocyte Esterase (Negative) Urine WBC (Auto) (0-5) /hpf Urine RBC (Auto) (0-2) /hpf U Hyaline Cast (Auto) (0-2) /lpf U Epithel Cells (Auto) (0-2) /hpf Urine Bacteria (Auto) (None Seen) Nasal Screen MRSA (PCR) Negative (Negative) Adenovirus (PCR) (NotDetected) B. pertussis DNA (PCR) (NotDetected) B.parapertussis DNA PCR (NotDetected) C. pneumoniae DNA (PCR) (NotDetected) Coronavirus OC43 (PCR) (NotDetected) Coronavirus HKU1 (PCR) (NotDetected) Coronavirus 229E (PCR) (NotDetected) SARS-CoV-2 (PCR) (NotDetected) Coronavirus NL63 (PCR) (NotDetected) Enterobacterales (PCR) (NotDetected) E. coli (PCR) (NotDetected) Human Metapneumovir PCR (NotDetected) Influenza Type A (PCR) (NotDetected) Influenza Type B (PCR) (NotDetected) M. pneumoniae (PCR) (NotDetected) Parainfluenza 1 (PCR) (NotDetected) Parainfluenza 2 (PCR) (NotDetected) Parainfluenza 3 (PCR) (NotDetected) Parainfluenza 4 (PCR) (NotDetected) RSV (PCR) (NotDetected) Entero/Rhino (PCR) (NotDetected) mcr-1 Colistin Res Gene PCR (NotDetected) blaIMP Car res Gene PCR (NotDetected) KPC-Carbap Res Gene PCR (NotDetected) blaNDM Car Res Gene PCR (NotDetected) OXA-48 Carbapenem Resis Gene (PCR) (NotDetected) blaVIM Car Res Gene PCR (NotDetected) CTX-M Gene Resistance (PCR) (NotDetected) Bld Cult ID Panel PCR (NotDetected) Administered Medications Apixaban (Apixaban 5 Mg Tablet) 5 mg PO BID BERNICE Stop: 02/27/24 08:59 Last Admin: 01/28/24 07:41 Dose: 5 mg Documented By: GISSEL Ascorbic Acid (Ascorbic Acid 500 Mg Tab) 500 mg PO QAM BERNICE Stop: 02/27/24 08:59 Last Admin: 01/28/24 07:41 Dose: 500 mg Documented By: GISSEL Fish Oil (Brownton-3 (Purified Fish Oil) 1 Gm Cap) 1 cap PO BID BERNICE Stop: 02/27/24 08:59 Last Admin: 01/28/24 07:41 Dose: 1 cap Documented By: GISSEL Glucosamine Sulfate (Glucosamine Sulfate 500 Mg Cap) 500 mg PO QAM BERNICE Stop: 02/27/24 08:59 Last Admin: 01/28/24 07:41 Dose: 500 mg Documented By: GISSEL Piperacillin Sod/Tazobactam Sod (Zosyn) 4.5 gm in 100 mls @ 25 mls/hr IV Q8H BERNICE Stop: 02/07/24 05:59 Last Infusion: 01/28/24 17:58 Dose: Infused Documented By: Admin: 01/28/24 13:51 Dose: 25 mls/hr Documented By: Infusion: 01/28/24 10:32 Dose: Infused Documented By: Admin: 01/28/24 06:24 Dose: 25 mls/hr Documented By: BHARGAV Levothyroxine Sodium (Levothyroxine Sodium 75 Mcg Tablet) 75 mcg PO DAILYBB BERNICE Stop: 02/27/24 06:29 Last Admin: 01/28/24 06:24 Dose: 75 mcg Documented By: BHARGAV Losartan Potassium (Losartan Potassium 50 Mg Tab) 100 mg PO DAILY BERNICE Stop: 02/27/24 08:59 Last Admin: 01/28/24 07:41 Dose: 100 mg Documented By: GISSEL Multivitamins/Minerals (Cerovite Adv Formula Tab) 1 tab PO BID BERNICE Stop: 02/27/24 08:59 Last Admin: 01/28/24 07:41 Dose: 1 tab Documented By: GISSEL Discontinued Medications Sodium Chloride (Nss) 1,000 mls @ 999 mls/hr IV .Q1H1M BERNICE Stop: 01/27/24 21:00 Last Infusion: 01/27/24 21:41 Dose: Infused Documented By: Admin: 01/27/24 20:08 Dose: 999 mls/hr Documented By: LOUIE Acetaminophen (Ofirmev) 1,000 mg in 100 mls @ 400 mls/hr IV NOW STA Stop: 01/27/24 20:11 Last Infusion: 01/27/24 21:08 Dose: Infused Documented By: Admin: 01/27/24 20:08 Dose: 400 mls/hr Documented By: LOUIE Ceftriaxone Sodium (Rocephin) 2,000 mg in 50 mls @ 100 mls/hr IV NOW STA Stop: 01/27/24 21:15 Last Admin: 01/27/24 21:51 Dose: Not Given Documented By: SOMMER Piperacillin Sod/Tazobactam Sod (Zosyn) 4.5 gm in 100 mls @ 200 mls/hr IV NOW ONE Stop: 01/27/24 21:46 Last Infusion: 01/27/24 22:20 Dose: Infused Documented By: Admin: 01/27/24 21:42 Dose: 200 mls/hr Documented By: SOMMER Sodium Chloride (Nss) 500 mls @ 999 mls/hr IV .Q31M ONE Stop: 01/27/24 21:58 Last Infusion: 01/27/24 22:20 Dose: Infused Documented By: Admin: 01/27/24 21:42 Dose: 999 mls/hr Documented By: SOMMER Magnesium Sulfate/Dextrose (Magnesium Sulfate / D5w) 1 gm in 100 mls @ 50 mls/hr IV ONE ONE Stop: 01/28/24 00:09 Last Infusion: 01/28/24 01:26 Dose: Infused Documented By: [facility] Admin: 01/27/24 22:23 Dose: 50 mls/hr Documented By: SOMMER Potassium Chloride/Sodium Chloride (Normal Saline W/20 Meq Kcl) 20 meq in 1,000 mls @ 80 mls/hr IV .[id number] BERNICE Stop: 01/28/24 11:42 Last Infusion: 01/28/24 06:43 Dose: 0 mls/hr Documented By: Admin: 01/28/24 00:33 Dose: 80 mls/hr Documented By: BHARGAV Potassium Chloride (Potassium Chloride Crtab 20 Meq Tabcr) 40 meq PO NOW STA Stop: 01/27/24 22:11 Last Admin: 01/27/24 22:22 Dose: 40 meq Documented By: EMB Imaging Data Radiologist's Impression: Chest X-Ray 01/27/24 19:58 SINGLE VIEW CHEST CLINICAL HISTORY: Sepsis. FINDINGS: An AP, portable, upright chest radiograph is compared to study dated 11/23/2021. The cardiomediastinal silhouette is unremarkable noting atherosclerotic calcification of the thoracic aorta. Chronic interstitial thickening is similar to previous. There are left basilar opacities. No large pleural effusion or pneumothorax is seen. The skeletal structures are osteopenic. The bony thorax is grossly intact. Cholecystectomy clips are seen in the right upper quadrant. IMPRESSION: Left basilar opacities likely could represent scarring/atelectasis versus a mild pneumonitis. Correlate clinically. ACT 112: Negative or not required by law. Electronically signed by: Cyril Dill M.D. 01/27/2024 9:[address] 01/27/24 20:03 Exam(s): CT HEAD Without Contrast EXAM: CT Head Without Intravenous Contrast CLINICAL HISTORY: Reason for exam: headache, on eliquis. TECHNIQUE: Axial computed tomography images of the head/brain without intravenous contrast. CTDI is 35 mGy and DLP is 624 mGy-cm. Automated exposure control was utilized for the study. A dose lowering technique was utilized adhering to the principles of ALARA. COMPARISON: Prior head CT from August 31, 2019. FINDINGS: Brain: Unremarkable. No hemorrhage. No significant white matter disease. No edema. Ventricles: Unremarkable. No ventriculomegaly. Bones/joints: Unremarkable. No acute fracture. Soft tissues: Unremarkable. Sinuses: Unremarkable as visualized. No acute sinusitis. Mastoid air cells: Unremarkable as visualized. No mastoid effusion. IMPRESSION: No evidence of acute intracranial pathology. Electronically signed by: Marcela Cavazos MD 01/27/24 23:10 PM Discharge Plan Visit Data Chief Complaint: Vertigo Stated Complaint: Fever, Leg Weakness ED Provider: Roby Powell Discharge Problem: Sepsis, Acute UTI, Acute dehydration Patient Disposition: Admitted As Inpatient Discharge Instructions Interventions: ED Discharge Assessment Last Done: 01/27/24 23:14 Discharge Problem: Sepsis Qualifiers: Sepsis type: sepsis due to unspecified organism Sepsis acute organ dysfunction status: with acute organ dysfunction Severe sepsis acute organ dysfunction type: unspecified Severe sepsis shock status: without septic shock Qualified Code(s): A41.9 - Sepsis, unspecified organism; R65.20 - Severe sepsis without septic shock
[2024-01-27] MEDS: ACETAMINOPHEN 1,000 MG/100 ML VIAL IV STA (20:08)
[2024-01-27] MEDS: SODIUM CHLORIDE 0.9% 1,000 ML IV SCH (20:08)
[2024-01-27 20:21] LABS: Basophils # (auto) 0.04 K/uL (0.00-0.20); Basophils % (auto) 0.3 %; Hematocrit (blood only) 38.8 % (37.0-47.0); Hemoglobin 13.4 g/dl (12.0-16.0); Immature Granulocytes # (auto) 0.12 K/uL (0.01-0.20); Immature Granulocytes % (auto) 0.8 %; Lymphocytes # (auto) 0.88 K/uL (1.20-3.40); Lymphocytes % (auto) 5.9 %; Mean Corpuscular Hemoglobin 29.6 pg (25.0-34.0); Mean Corpuscular Hgb Conc 34.5 g/dL (32.0-36.0); Mean Corpuscular Volume 85.7 fL (80.0-100.0); Mean Platelet Volume 10.1 fL (9.4-12.4); Monocytes # (auto) 1.07 K/uL (0.11-0.59); Monocytes % (auto) 7.2 %; Neutrophils # (auto) 12.81 K/uL (1.40-6.50); Neutrophils % (auto) 85.8 %; Platelet Count 260 K/uL (130-400); RDW Coefficient of Variation 12.8 % (11.5-14.5); Red Blood Count 4.53 M/uL (4.20-5.40); White Blood Count 14.92 K/ul (4.8-10.8)
[2024-01-27 20:56] LABS: Alanine Aminotransferase 16 U/L (7-52); Albumin Level 3.3 gm/dl (3.4-5.0); Alkaline Phosphatase 59 U/L (34-104); Anion Gap 10 (3-11); BUN Creatinine Ratio 27.1 (10-20); Bilirubin,Total 0.9 mg/dl (0.2-1.0); Blood Urea Nitrogen 29 mg/dl (6-23); Calcium 8.9 mg/dl (8.6-10.3); Carbon Dioxide 22 mmol/L (21-32); Chloride 102 mmol/L (98-107); Creatinine Clr Calc Pharmacy 45.6 ml/min; Est GFR (African American) 55.2 ml/min; Est GFR (Non-African American) 47.6 ml/min; Glucose 158 mg/dl (70-99(Fasting)); Magnesium 1.8 mg/dl (1.7-2.4); Sodium 134 mmol/L (136-145); Total Protein 6.4 gm/dl (6.0-8.3); Troponin I High Sensitivity 32.7 pg/ml (0-14)
[2024-01-27 21:05] LABS: Adenovirus PCR Not Detected (NotDetected); Bordetella parapertussis PCR Not Detected (NotDetected); Bordetella pertussis PCR Not Detected (NotDetected); Chlamydia pneumoniae PCR Not Detected (NotDetected); Coronavirus 229E PCR Not Detected (NotDetected); Coronavirus CoV-2 (COVID19)PCR Not Detected (NotDetected); Coronavirus HKU1 PCR Not Detected (NotDetected); Coronavirus NL63 PCR Not Detected (NotDetected); Coronavirus OC43PCR Not Detected (NotDetected); Human Metapneumovirus PCR Not Detected (NotDetected); Influenza A PCR Not Detected (NotDetected); Influenza B PCR Not Detected (NotDetected); Mycoplasma pneumoniae PCR Not Detected (NotDetected); Parainfluenza Virus 1 PCR Not Detected (NotDetected); Parainfluenza Virus 2 PCR Not Detected (NotDetected); Parainfluenza Virus 3 PCR Not Detected (NotDetected); Parainfluenza Virus 4 PCR Not Detected (NotDetected); Respiratory Syncytial VirusPCR Not Detected (NotDetected); Rhinovirus/Enterovirus PCR Not Detected (NotDetected)
[2024-01-27 21:23] LABS: Appearance Urine Cloudy (Clear); Bacteria Urine Automated 4+ (None Seen); Bilirubin Urine Negative (Negative); Blood Urine 1+ (Negative); Color Urine Yellow; Epithelial Cell Urine Auto 0-2 /hpf (0-2); Glucose Urine UA Negative (Negative); Ketones Urine Trace (Negative); Leukocyte Esterase Urine 3+ (Negative); Nitrite Urine Positive (Negative); Protein Urine 1+ (Negative); Specific Gravity Urine 1.013 (1.000-1.030); Urobilinogen Urine Negative (Negative); WBC Urine Automated >50 /hpf (0-5); pH Urine 5.5 (4.5-7.5)
[2024-01-27] MEDS: SODIUM CHLORIDE 0.9% 500 ML IV ONE (21:42)
[2024-01-27] MEDS: PIPERACILLIN/TAZOBACTAM 4.5 GM/100 ML BAG IV ONE (21:42)
[2024-01-27] MEDS: cefTRIAXone SODIUM 2,000 MG/50 ML BAG IV STA (21:51)
[2024-01-27 21:55] LABS: Bilirubin Direct 0.2 mg/dl (0-0.2); Potassium 3.3 mmol/L (3.5-5.1)
--- NOTE | 2024-01-27 21:55 | XRay Report ---
SINGLE VIEW CHEST CLINICAL HISTORY: Sepsis. FINDINGS: An AP, portable, upright chest radiograph is compared to study dated 11/23/2021. The cardiom ediastinal silhouette is unremarkable noting atherosclerotic calcification of the thoracic aorta. Chr onic interstitial thickening is similar to previous. There are left basilar opacities. No large pleur al effusion or pneumothorax is seen. The skeletal structures are osteopenic. The bony thorax is gross ly intact. Cholecystectomy clips are seen in the right upper quadrant. IMPRESSION: Left basilar opacities likely could represent scarring/atelectasis versus a mild pneumoni tis. Correlate clinically. ACT 112: Negative or not required by law. Electronically signed by: Cyril Dill M.D. 01/27/2024 9:54 PM
[2024-01-27] MEDS: POTASSIUM CHLORIDE CRTAB 20 MEQ TABCR PO STA (22:22)
--- NOTE | 2024-01-27 22:22 | History & Physical Report ---
Date of Service January 27, 2024 Assessment & Plan (1) Sepsis due to urinary tract infection: (2) Elevated troponin: (3) PAC (premature atrial contraction): (4) UTI (urinary tract infection): (5) Hypothyroidism: (6) Hypokalemia: (7) Hypomagnesemia: (8) Deep vein thrombosis: (9) GERD (gastroesophageal reflux disease): (10) Impaired fasting glucose: (11) Hyperlipidemia: (12) Hypertension: (13) Hypothyroidism: (14) Macular degeneration: Plan Sepsis due to UTI- Follow urine culture and sensitivity Continue Zosyn 4.5 g IV every 8 hours as begun in the ED Status post 1 L normal saline from the ED NSS + KCl 20 mill equivalents at 80 mL/h x 1 L Acetaminophen 650 mg by mouth every 6 hours as needed for mild pain or fever Follow-up CBC with differential, PRP, magnesium levels in the a.m. Electrolyte disturbances/hypokalemia/hypomagnesemia/PACs/hypertension- Potassium 3.3 on admission, give potassium chloride 40 mEq p.o. now, and recheck laboratories in a.m. Magnesium 1.8, give magnesium sulfate 1 g IV, and recheck laboratories in a.m. Hold HCTZ 25 mg daily Continue losartan 100 mg daily The patient will be admitted to telemetry for serial cardiac enzymes, serial EKG's, cardiac rhythm monitoring and a 2-D echocardiogram with Dopplers. Elevated troponin/electrolyte disturbances/questionable atrial fibrillation- The patient will be admitted to telemetry for serial cardiac enzymes, serial EKG's, cardiac rhythm monitoring and a 2-D echocardiogram with Dopplers. Troponin 32.7 on admission, with follow-up pending Initial EKG was read as atrial fibrillation, however, showed considerable noise Repeat EKG shows normal sinus rhythm with PACs, which I observed during my evaluation, and which appears to be her predominant rhythm for the extent of her emergency department stay History of DVT in 2016- Continues on apixaban History of Present Illness Chief Complaint: The patient presents to the emergency department, with family, who reports that she has had several days of generalized fatigue, lethargy, and inability to perform her usual activities. Primary Care Provider: Brayden Quinn, The patient is an 83-year-old the past medical history including hypertension, hypothyroidism, right lower extremity DVT, GERD, impaired fasting glucose, macular degeneration, hyperlipidemia, chronic low back pain and obesity. She presents to the emergency department with family concerns regarding several days of generalized fatigue, lethargy and decreased ability to engage in her usual activities. Allergies Allergy/AdvReac Type Severity Reaction Status Date / Time morphine AdvReac Severe vomit Verified 10/19/23 13:31 Home Medications Medication Instructions Recorded Confirmed Type ascorbic acid (vitamin C) 500 mg 500 mg PO QAM 04/11/18 01/27/24 History tablet (Vitamin C) calcium carbonate 600 mg-vitamin 1 tab PO QPM 04/11/18 01/27/24 History D3 5 mcg (200 unit) capsule (Calcium 600 + D(3)) glucosamine sulfate 500 mg tablet 500 mg PO QAM 04/11/18 01/27/24 History (Glucosamine) omega 3 350 mg-dha 235 mg-epa 90 1 cap PO BID 04/11/18 01/27/24 History mg-fish oil 597 mg capsule,delay rel ([place]-3) vit C 250 mg-vit E 90 mg-zinc 40 1 tab PO BID 04/11/18 01/27/24 History mg-copper 1 [id number] capsule (PreserVision AREDS-2) meclizine 25 mg tablet 25 mg PO TID PRN dizziness #30 tabs 12/22/20 01/27/24 Rx hydrochlorothiazide 25 mg tablet 25 mg PO DAILY #90 tabs 04/08/23 01/27/24 Rx levothyroxine 75 mcg tablet 75 mcg PO DAILY #90 tabs 04/12/23 01/27/24 Rx losartan 100 mg tablet 100 mg PO DAILY #90 tabs 04/12/23 01/27/24 Rx apixaban 5 mg tablet (Eliquis) 5 mg PO BID #180 tabs 08/15/23 01/27/24 Rx Past Med/Surg History Problem List (Updated 01/28/24 @ 02:32 by Luke Dill MD) Sepsis due to urinary tract infection PAC (premature atrial contraction) Hypomagnesemia Hypokalemia Deep vein thrombosis 2016 R leg--was on eliquis, no longer on it Elevated troponin Right knee DJD Lower extremity edema Hypertension (Chronic) Hypothyroidism (Chronic) Right leg DVT (~2016) GERD (gastroesophageal reflux disease) Impaired fasting glucose (Chronic) Macular degeneration (Acute) Hyperlipidemia (Acute) Trapezius muscle spasm Low back pain Medical History (Updated 01/28/24 @ 02:32 by Luke Dill MD) Cholelithiases Gastritis determined by endoscopy 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 Rectocele Nausea and vomiting after administration of anesthetic agent Hypothyroidism Migraine Hypertension Surgical History History of total abdominal hysterectomy and bilateral salpingo-oophorectomy History of left breast biopsy benign History of dilatation and curettage History of bilateral tubal ligation History of open reduction and internal fixation (ORIF) procedure R ankle fx--hardware in place History of cholecystectomy History of tonsillectomy and adenoidectomy Hx of tubal ligation Family History Mother Breast cancer Father Coronary heart disease Tobacco use Myocardial infarction Brother Coronary heart disease Myocardial infarction Prostate cancer Sister Alzheimer disease Denies family history of Ovarian cancer Colorectal cancer Social History Smoking Status: Never smoker Second Hand Exposure: No (parents smoked); Do You Dip or Chew Tobacco: No; Hx Alcohol Use: No Hx Substance Use: No Preferred Language: Faroese Communication Ability: Effective Visual Impairment: Limited Hearing Ability: Normal Rad Tech Required: No Beliefs That Will Affect Care: None marital status: / Current Living Situation: Family Current Living Situation Comment: Lives with son current occupational status: retired 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 Other Information That Helps Us Care for You: No Feels Safe at Home: Yes Safety Concerns: Feels Safe At This Time Childhood Exposure to Second-Hand Smoke: Yes Diet: regular caffeine: Yes Dental Care, Regularly: Yes Physical Activity Frequency: Does not Exercise Seatbelt Use: always Sunscreen Use: Yes Assistive Devices: Glasses and Hearing Aid - Bilateral Review of Systems Review of Systems: The patient denies chest pain, palpitations, shortness of breath, dyspnea on exertion, cough, lower extremity swelling, sore throat, fevers, chills, sweats, nausea, vomiting, diarrhea , constipation, abdominal pain, pelvic pain, blood in urine or stool, dysuria, urinary frequency or urgency, memory loss, loss of consciousness, rash, abnormal bruising or bleeding, imbalance, focal weakness, numbness or tingling in arms or legs, generalized arthralgias or myalgias, back or neck pain, or night sweats. The review of systems is otherwise negative other than for that already noted above, and at least 10 systems have been reviewed. Physical Exam Physical Exam: The patient is awake, alert and oriented 3, well developed and well nourished, normocephalic and atraumatic, lying in bed and in no acute distress. HEENT--PERRL, EOMI, mucous membranes and oropharynx mildly dry. Neck--supple. No JVD. No bruits. Thyroid normal, trachea midline, no adenopathy. Heart--normal S1 and S2. No murmurs, rubs or gallops. Lungs--clear bilaterally, no respiratory distress, no accessory muscle use. Abdomen--normal bowel sounds and soft. Nontender. Nondistended, no hernias or masses, no organomegaly. Extremities--no cyanosis or clubbing. No edema. There are good distal pulses b/l. Dermatologic--normal skin turgor, normal color, no abnormal lymph nodes, no rash. Neurologic--cranial nerves II through XII grossly intact. Rheumatologic--normal range of motion. Psychiatric--normal affect. Results & Data Results & Data Vital Signs (Past 12 Hours) Vital Signs Temp Pulse Pulse Resp BP BP Pulse Ox 01/27/24 22:00 50 L 19 127/65 97 01/27/24 21:47 37.4 C 81 24 127/61 93 01/27/24 21:09 36.9 C 91 H 22 124/68 94 01/27/24 20:37 38.6 C H 101 H 26 H 124/68 94 01/27/24 20:12 93 H 26 H 92 01/27/24 19:53 115 H 01/27/24 19:39 38.6 C H 119 H 26 H 153/75 H 92 O2 Del Method 01/27/24 22:00 Room Air 01/27/24 21:47 Room Air 01/27/24 21:09 Room Air 01/27/24 20:37 Room Air 01/27/24 20:12 Room Air 01/27/24 19:53 01/27/24 19:39 Room Air Laboratory Results Laboratory Results WBC 14.92 K/ul (4.8-10.8) H 01/27/24 19:58 RBC 4.53 M/uL (4.20-5.40) 01/27/24 19:58 Hgb 13.4 g/dl (12.0-16.0) 01/27/24 19:58 Hct 38.8 % (37.0-47.0) 01/27/24 19:58 MCV 85.7 fL (80.0-100.0) 01/27/24 19:58 MCH 29.6 pg (25.0-34.0) 01/27/24 19:58 MCHC 34.5 g/dL (32.0-36.0) 01/27/24 19:58 RDW Std Deviation 40.0 fL (36.4-46.3) 01/27/24 19:58 RDW Coeff of Manjula 12.8 % (11.5-14.5) 01/27/24 19:58 Plt Count 260 K/uL (130-400) 01/27/24 19:58 MPV 10.1 fL (9.4-12.4) 01/27/24 19:58 Immature Gran % (Auto) 0.8 % 01/27/24 19:58 Neut % (Auto) 85.8 % 01/27/24 19:58 Lymph % (Auto) 5.9 % 01/27/24 19:58 Bracken % (Auto) 7.2 % 01/27/24 19:58 Eos % (Auto) 0.0 % 01/27/24 19:58 Baso % (Auto) 0.3 % 01/27/24 19:58 Neut # (Auto) 12.81 K/uL (1.40-6.50) H 01/27/24 19:58 Lymph # (Auto) 0.88 K/uL (1.20-3.40) L 01/27/24 19:58 Bracken # (Auto) 1.07 K/uL (0.11-0.59) H 01/27/24 19:58 Eos # (Auto) 0.00 K/uL (0.00-0.50) 01/27/24 19:58 Baso # (Auto) 0.04 K/uL (0.00-0.20) 01/27/24 19:58 Immature Gran # (Auto) 0.12 K/uL (0.01-0.20) 01/27/24 19:58 Sodium 134 mmol/L (136-145) L 01/27/24 19:58 Potassium 3.3 mmol/L (3.5-5.1) L 01/27/24 21:18 Chloride 102 mmol/L (98-107) 01/27/24 19:58 Carbon Dioxide 22 mmol/L (21-32) 01/27/24 19:58 Anion Gap 10 (3-11) 01/27/24 19:58 BUN 29 mg/dl (6-23) H 01/27/24 19:58 Creatinine 1.07 mg/dl (0.6-1.2) 01/27/24 19:58 Est Cr Clr Drug Dosing 45.6 ml/min 01/27/24 19:58 Est GFR ( Amer) 55.2 ml/min 01/27/24 19:58 Est GFR (Non-Af Amer) 47.6 ml/min 01/27/24 19:58 BUN/Creatinine Ratio 27.1 (10-20) H 01/27/24 19:58 Glucose 158 mg/dl (70-99(Fasting)) H 01/27/24 19:58 Lactate 1.3 mmol/L (0.4-2.0) 01/27/24 20:17 Calcium 8.9 mg/dl (8.6-10.3) 01/27/24 19:58 Magnesium 1.8 mg/dl (1.7-2.4) 01/27/24 19:58 Total Bilirubin 0.9 mg/dl (0.2-1.0) 01/27/24 19:58 Direct Bilirubin 0.2 mg/dl (0-0.2) 01/27/24 21:18 AST 16 U/L (13-39) 01/27/24 21:18 ALT 16 U/L (7-52) 01/27/24 19:58 Alkaline Phosphatase 59 U/L (34-104) 01/27/24 19:58 Troponin I High Sens 30.6 pg/ml (0-14) H 01/27/24 22:04 Total Protein 6.4 gm/dl (6.0-8.3) 01/27/24 19:58 Albumin 3.3 gm/dl (3.4-5.0) L 01/27/24 19:58 Procalcitonin 7.83 ng/ml (0-0.5) H 01/27/24 19:58 Urine Color Yellow 01/27/24 21:05 Urine Appearance Cloudy (Clear) A 01/27/24 21:05 Urine pH 5.5 (4.5-7.5) 01/27/24 21:05 Ur Specific [place] 1.013 (1.000-1.030) 01/27/24 21:05 Urine Protein 1+ (Negative) H 01/27/24 21:05 Urine Glucose (UA) Negative (Negative) 01/27/24 21:05 Urine Ketones Trace (Negative) H 01/27/24 21:05 Urine Blood 1+ (Negative) H 01/27/24 21:05 Urine Nitrite Positive (Negative) A 01/27/24 21:05 Urine Bilirubin Negative (Negative) 01/27/24 21:05 Urine Urobilinogen Negative (Negative) 01/27/24 21:05 Ur Leukocyte Esterase 3+ (Negative) H 01/27/24 21:05 Urine WBC (Auto) >50 /hpf (0-5) H 01/27/24 21:05 Urine RBC (Auto) 3-5 /hpf (0-2) H 01/27/24 21:05 U Hyaline Cast (Auto) 11-20 /lpf (0-2) H 01/27/24 21:05 U Epithel Cells (Auto) 0-2 /hpf (0-2) 01/27/24 21:05 Urine Bacteria (Auto) 4+ (None Seen) H 01/27/24 21:05 Nasal Screen MRSA (PCR) Negative (Negative) 01/27/24 21:47 Adenovirus (PCR) Not Detected (NotDetected) 01/27/24 19:55 B. pertussis DNA (PCR) Not Detected (NotDetected) 01/27/24 19:55 B.parapertussis DNA PCR Not Detected (NotDetected) 01/27/24 19:55 C. pneumoniae DNA (PCR) Not Detected (NotDetected) 01/27/24 19:55 Coronavirus OC43 (PCR) Not Detected (NotDetected) 01/27/24 19:55 Coronavirus HKU1 (PCR) Not Detected (NotDetected) 01/27/24 19:55 Coronavirus 229E (PCR) Not Detected (NotDetected) 01/27/24 19:55 SARS-CoV-2 (PCR) Not Detected (NotDetected) 01/27/24 19:55 Coronavirus NL63 (PCR) Not Detected (NotDetected) 01/27/24 19:55 Human Metapneumovir PCR Not Detected (NotDetected) 01/27/24 19:55 Influenza Type A (PCR) Not Detected (NotDetected) 01/27/24 19:55 Influenza Type B (PCR) Not Detected (NotDetected) 01/27/24 19:55 M. pneumoniae (PCR) Not Detected (NotDetected) 01/27/24 19:55 Parainfluenza 1 (PCR) Not Detected (NotDetected) 01/27/24 19:55 Parainfluenza 2 (PCR) Not Detected (NotDetected) 01/27/24 19:55 Parainfluenza 3 (PCR) Not Detected (NotDetected) 01/27/24 19:55 Parainfluenza 4 (PCR) Not Detected (NotDetected) 01/27/24 19:55 RSV (PCR) Not Detected (NotDetected) 01/27/24 19:55 Entero/Rhino (PCR) Not Detected (NotDetected) 01/27/24 19:55 Impressions Chest X-Ray 01/27/24 19:58 SINGLE VIEW CHEST CLINICAL HISTORY: Sepsis. FINDINGS: An AP, portable, upright chest radiograph is compared to study dated 11/23/2021. The cardiomediastinal silhouette is unremarkable noting atherosclerotic calcification of the thoracic aorta. Chronic interstitial thickening is similar to previous. There are left basilar opacities. No large pleural effusion or pneumothorax is seen. The skeletal structures are osteopenic. The bony thorax is grossly intact. Cholecystectomy clips are seen in the right upper quadrant. IMPRESSION: Left basilar opacities likely could represent scarring/atelectasis versus a mild pneumonitis. Correlate clinically. ACT 112: Negative or not required by law. Electronically signed by: Cyril Dill M.D. 01/27/2024 9:[address] 01/27/24 20:03 Exam(s): CT HEAD Without Contrast EXAM: CT Head Without Intravenous Contrast CLINICAL HISTORY: Reason for exam: headache, on eliquis. TECHNIQUE: Axial computed tomography images of the head/brain without intravenous contrast. CTDI is 35 mGy and DLP is 624 mGy-cm. Automated exposure control was utilized for the study. A dose lowering technique was utilized adhering to the principles of ALARA. COMPARISON: Prior head CT from August 31, 2019. FINDINGS: Brain: Unremarkable. No hemorrhage. No significant white matter disease. No edema. Ventricles: Unremarkable. No ventriculomegaly. Bones/joints: Unremarkable. No acute fracture. Soft tissues: Unremarkable. Sinuses: Unremarkable as visualized. No acute sinusitis. Mastoid air cells: Unremarkable as visualized. No mastoid effusion. IMPRESSION: No evidence of acute intracranial pathology. Electronically signed by: Marcela Cavazos MD 01/27/24 23:10 PM Code Status & VTE Plan Code Status Full code VTE Prophylaxis Plan VTE Prophylaxis will be ordered: Yes PG Care Time/CCT Total # of Minutes Spent Total Time Spent with Patient: Total time spent is greater than 50% in coordination of care (as documented) at patient's floor/unit and/or counseling patient: Coding Level of Care Code 64395 INT INP/OBS CARE 3/75MIN Diagnoses Sepsis due to urinary tract infection A41.9; N39.0 Elevated troponin R79.89 PAC (premature atrial contraction) I49.1 UTI (urinary tract infection) N39.0 Hypothyroidism E03.9 Hypothyroidism type: unspecified Hypokalemia E87.6 Hypomagnesemia E83.42 Deep vein thrombosis I82.409 GERD (gastroesophageal reflux disease) K21.9 Impaired fasting glucose R73.01 Hyperlipidemia E78.5 Hypertension I10 Macular degeneration H35.30 (5) Hypothyroidism Hypothyroidism type: unspecified Qualified Code(s): E03.9 - Hypothyroidism, unspecified
[2024-01-27] MEDS: MAGNESIUM SULFATE / D5W 1 GM/100 ML BAG IV ONE (22:23)
--- NOTE | 2024-01-27 23:12 | CT Scan Report ---
Exam(s): CT HEAD Without Contrast EXAM: CT Head Without Intravenous Contrast CLINICAL HISTORY: Reason for exam: headache, on eliquis. TECHNIQUE: Axial computed tomography images of the head/brain without intravenous contrast. CTDI is 35 mGy and DLP is 624 mGy-cm. Automated exposure control was utilized for the study. A dose lowering technique was utilized adhering to the principles of ALARA. COMPARISON: Prior head CT from August 31, 2019. FINDINGS: Brain: Unremarkable. No hemorrhage. No significant white matter disease. No edema. Ventricles: Unremarkable. No ventriculomegaly. Bones/joints: Unremarkable. No acute fracture. Soft tissues: Unremarkable. Sinuses: Unremarkable as visualized. No acute sinusitis. Mastoid air cells: Unremarkable as visualized. No mastoid effusion. IMPRESSION: No evidence of acute intracranial pathology. Electronically signed by: Marcela Cavazos MD 01/27/24 23:10 PM
[2024-01-27] MEDS ORDERED: MECLIZINE HCL 25 MG TAB PO PRN (23:13)
[2024-01-27] MEDS ORDERED: ONDANSETRON INJ 2 MG/ML 2 ML VIAL IV PRN (23:13)
[2024-01-28] MEDS: NSS + 20MEQ KCL 20 MEQ/1,000 ML BAG IV SCH (00:33)
[2024-01-28 02:35] LABS: Basophils # (auto) 0.03 K/uL (0.00-0.20); Basophils % (auto) 0.2 %; Eosinophils # (auto) 0.01 K/uL (0.00-0.50); Eosinophils % (auto) 0.1 %; Hematocrit (blood only) 38.7 % (37.0-47.0); Hemoglobin 12.8 g/dl (12.0-16.0); Immature Granulocytes # (auto) 0.06 K/uL (0.01-0.20); Immature Granulocytes % (auto) 0.5 %; Lymphocytes # (auto) 1.86 K/uL (1.20-3.40); Mean Corpuscular Hemoglobin 28.9 pg (25.0-34.0); Mean Corpuscular Hgb Conc 33.1 g/dL (32.0-36.0); Mean Corpuscular Volume 87.4 fL (80.0-100.0); Mean Platelet Volume 9.9 fL (9.4-12.4); Monocytes # (auto) 0.36 K/uL (0.11-0.59); Monocytes % (auto) 2.9 %; Neutrophils % (auto) 81.3 %; Platelet Count 231 K/uL (130-400); RDW Coefficient of Variation 12.7 % (11.5-14.5); RDW Standard Deviation 41.1 fL (36.4-46.3); Red Blood Count 4.43 M/uL (4.20-5.40); White Blood Count 12.42 K/ul (4.8-10.8)
[2024-01-28 02:51] LABS: Albumin Level 3.3 gm/dl (3.4-5.0); BUN Creatinine Ratio 24.3 (10-20); Calcium 8.8 mg/dl (8.6-10.3); Creatinine Clr Calc Pharmacy 45.6 ml/min; Est GFR (African American) 55.2 ml/min; Est GFR (Non-African American) 47.6 ml/min; Magnesium 2.1 mg/dl (1.7-2.4); Phosphorus 2.8 mg/dl (2.5-4.9); Potassium 3.9 mmol/L (3.5-5.1)
[2024-01-28 02:57] LABS: Troponin I High Sensitivity 32.6 pg/ml (0-14)
[2024-01-28] MEDS: LEVOTHYROXINE SODIUM 75 MCG TABLET PO SCH (06:24)
[2024-01-28] MEDS: PIPERACILLIN/TAZOBACTAM 4.5 GM/100 ML BAG IV SCH (06:24)
--- OUTSIDE RECORDS SUMMARY | 2024-01-28 06:52 | External Medical Summary | Summary of Care ---
Author Name Unknown Organization [facility] Address [address] [place] [address] Phone [phone] Care Team Providers Care Director Of Revenue Cycle Management Name Role Phone Marcela ARMENDARIZ MD, Yoan Lyon Primary Care Pr ovider Reason for Visit * Reason Comments Follow Up 6 month return Encounter Details Date Type Department Care Team (Late st Contact Info) Description 12/28/2023 10:00 AM EDT Office Visit Ophthalmology, 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 Active vitamin c (ASCORBIC ACID) 500 MG Tablet Daily Activ e Shock 3 1000 MG CAPS 2 times a day. Active Glucosamine HCl 1000 MG Tablet daily. Active Multiple Vitamins-Minerals (PRESERVISION AREDS 2) Capsule Take 1 Capsule by mouth in the morning and 1 Capsule before bedtime. Active Eliquis 5 MG Oral Tablet Take 1 Tablet by mouth in the morning and 1 Tablet in the evening. 11/23/2021 Active hydroCHLOROthiazide 25 MG Oral Tablet (Hydrodiuril) Take 1 Tablet by mouth in the morning. 12/14/2022 Active Levothyroxine Sodium 75 MCG Oral Tablet (Levoxyl) Take 1 tablet by mouth daily 90 Tablet 3 04/12/2023 Active Losartan Potassium 100 MG Oral Tablet (Cozaar) Take 1 tablet by mouth daily 90 Tablet 3 04/12/2023 Active Eliquis 5 MG Oral Tablet (Apixaban) take 1 tablet by mouth twice daily 180 Tablet 3 08/15/2023 Active documented as of this encounter (statuses as of 12/28/2023) Active Problems Problem Noted Date Diagnosed Date Nonexudative age-related macular degeneration of left eye 05/19/2016 Exudative age-related macula r degeneration of right eye with active choroidal neovascularization 05/19/2016 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 Exudative macular degeneration 10/03/2014 documented as of this encounter (statuses as of 12/28/2023) Immunizations Name Administration Dates Next Due COVID-19 mRNA, LNP-s, No Pre serve, 2-Dose Series ([employer]) 07/10/2020,06/12/2020 Seasonal Influenza, Trivalent, Adjuvanted, 65+ y rs 02/04/2020,02/02/2019 Seasonal Influenza, Trivalen t, High Dose, No Preserve, IM 02/02/2019,01/26/2018 documented as of this encounter Social History Tobacco Use Types Packs/Day Years Used Date Smoking Tobacco: Never Smokeless Tobacco: Never Alcohol Use Standard Drinks/Week Comments No 0 (1 standard drink = 0.6 oz pur e alcohol) Sex and Gender Information Value Date Recorded Sex Assigned at Not on file Gender Identity Not on file Sexual Orientation Not on file Job Start Date Occupation Industry Not on file Not on file Not on file documented as of this encounter Progress Notes * Lamberto Segovia DO - 12/28/2023 10:00 AM EDT [facility] [place] Nursing Notes: Jessy Finley TECH 12/28/23 1007 Signed B Ana Corbin is a 83 year old year old female who presents for AMD OU. Last Office Visit: 06/29/2023 (in office), Visit date not found (telemedicine) Patient currently states no change in vision. Are you diabetic? No Do you drive? yes OCT image(s), fundus of both eyes acquired and filed/scanned into chart. Base Eye Exam Visual Acuity (Snellen - Linear) Right Left Dist cc 20/800 20/30 -2 Dist ph cc 20/800 +2 Correction: Glasses Tonometry (Tonopen, 10:04 AM) Right Left Pressure 18 19 Pupils Pupils Shape React APD Right PERRL Round Slow None Left PERRL Round Slow None Visual Gilliam (Counting fingers) Right Left Full Full Extraocular Movement Right Left Full, Ortho Full, Ortho Neuro/Psych Oriented x3: Yes Mood/Affect: Normal Dilation Both eyes: 0.5% Proparacaine @ 10:03 AM Dilation #2 Both eyes: 1.0% Mydriacyl, 2.5% Phenylephrine @ 10:04 AM Dilation #3 Both eyes: 1.0% Mydriacyl @ 10:07 AM Dilation Comments Patient cautioned that effects of dilation may last 2-7 hours dependant upon individual reaction. It was discussed that driving while dilated is not recommended. EXTERNAL: The ocular adnexae are unremarkable. SLE: Lids/Lashes: wnl OU Conjunctiva/Sclera: quiet OU Cornea: clear OU Anterior Chamber: deep and quiet OU Iris: normal OU; no NVI OU Lens: 3-4+NSC OD; 2-3+NSC OS Dilated fundus exam OD: vitreous: clear w/ pvd optic nerve: 0.2, no edema/pallor/NVD macula: +PED rip, no heme, CGA vessels: wnl midperiphery: wnl periphery: no RT/RD Dilated fundus exam OS: vitreous: clear w/ pvd optic nerve: 0.1, no edema/pallor/NVD macula: +drusen/PED/pig clumping; GA vessels: wnl midperiphery: wnl periphery: no RT/RD OCT Interpretation: OD: +PED rip w/ resolved mild inferior SRFluid - stable OS: +drusen, no CME/SRFLuid, flattened PED - stable A/P: 1. Age-Related Macular Degeneration OD: wet w/ PED rip on presentation -s/p Eylea (11-24-17, 08-17-2017,03-30-17, 11-24-16, 08-11-16, 05-19-16, 03/03/16, 12/24/15, 10/29/15, 09/02/15, 07/15/15, 06/03/15, 04/29/15, 03/26/15, 02/11/15, 12/31/14, 12/02/14, 10/30/14, 10/03/14) -VA OD poor -no benefit to further injections OS: dry/GA -monitor -recommend AREDS2 MVI as directed and Amsler grid qday 2. Cataracts OU -retinas stable for CE, pt understands that BCVA will be limited by AMD especially OD F/u 6 months and prn - dilate and OCT OU; FAF OU Lamberto Segovia DO CC: Daniela Meraz, WALTER PCP: Yoan Medrano III, MD documented in this encounter Nursing Notes * Jessy Finley TECH - 12/28/2023 9:58 AM EDT B Ana Corbin is a 83 year old year old female who presents for AMD OU. Last Office Visit: 06/29/2023 (in office), Visit date not found (telemedicine) Patient currently states no change in vision. Are you diabetic? No Do you drive? yes OCT image(s), fundus of both eyes acquired and filed/scanned into chart. documented in this encounter Plan of Treatment Upcoming Encounters Date Type Department Care Team (Late st Contact Info) Description 06/29/2024 10:00 AM EST Office Visit Ophthalmology, 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 involvement Ordered: 12/28/2023 Health Maintenance Due Date Last Done Comments DXA Scan 1940 Depression Screening 1952 DTap/Tdap Vaccines (1 - Tdap) 08/31/1996 08/30/1996 TSH 12/25/1999 12/24/1998, 09/30, 09/26/1996 Zoster Vaccines (2 of 3) 04/06/2013 02/09/2013 COVID-19 Vaccine ( season) 2022 03/01/2021, 07/10/2020, 06/12/2020 Influenza Vaccine (FLU shot) (#1) 2024 01/30/2021, 02/04/2020, 01/31/2020, Additional history exists Pneumococcal Vaccine: 65+ Years Completed 04/09/2016, 06/11/2010 HPV (Gardasil) Vaccine Aged Out No lo nger eligible based on patient's age to complete this topic Hepatitis B Vaccine Aged Out No longe r eligible based on patient's age to complete this topic MENINGOCOCCAL (MENACTRA/MENVEO) Aged Out No longer eligible based on patient's age to complete this topic documented as of this encounter Medical Devices Not on filedocumented as of this encounter Visit Diagnoses Diagnosis 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
[2024-01-28] MEDS: CEROVITE ADV FORMULA TAB PO SCH (07:41)
[2024-01-28] MEDS: OMEGA-3 (PURIFIED FISH OIL) 1 GM CAP PO SCH (07:41)
[2024-01-28] MEDS: GLUCOSAMINE SULFATE 500 MG CAP PO SCH (07:41)
[2024-01-28] MEDS: LOSARTAN POTASSIUM 50 MG TAB PO SCH (07:41)
[2024-01-28] MEDS: ASCORBIC ACID 500 MG TAB PO SCH (07:41)
[2024-01-28] MEDS: APIXABAN 5 MG TABLET PO SCH (07:41)
[2024-01-28 09:55] LABS: A calco-baum cmplx NotReported Not Detected (NotDetected); Bact fragilis Not Reported Not Detected (NotDetected); Blood Culture Id Panel See PCR Comment (NotDetected); C auris Not Reported Not Detected (NotDetected); CTX-M Resistant Gene Not Detected (NotDetected); Calbicans Not Reported Not Detected (NotDetected); Candida glabrata Not Reported Not Detected (NotDetected); Candida krusei Not Reported Not Detected (NotDetected); Cneoformans/gatti Not Reported Not Detected (NotDetected); Cparapsilosis Not Reported Not Detected (NotDetected); E cloacae compx Not Reported Not Detected (NotDetected); Efaecalis Not Reported Not Detected (NotDetected); Efaecium Not Reported Not Detected (NotDetected); Enterobacterales DETECTED (NotDetected); Enterobacterales Not Reported DETECTED (NotDetected); Escherichia coli Not Reported DETECTED (NotDetected); H influenzae Not Reported Not Detected (NotDetected); IMP Resistant Gene Not Detected (NotDetected); K aerogenes Not Reported Not Detected (NotDetected); KPC Resistant Gene Not Detected (NotDetected); Koxytoca Not Reported Not Detected (NotDetected); Kpneumoniae grp Not Reported Not Detected (NotDetected); Lmonocyt Not Reported Not Detected (NotDetected); N meningitidis Not Reported Not Detected (NotDetected); NDM Resistant Gene Not Detected (NotDetected); OXA 48 Like Resistant Gene Not Detected (NotDetected); P aeruginosa Not Reported Not Detected (NotDetected); Proteus spp Not Reported Not Detected (NotDetected); Salmonella spp Not Reported Not Detected (NotDetected); Staph lugdunensis Not Reported Not Detected (NotDetected); Staph spp. Not Reported Not Detected (NotDetected); Staphaureus Not Reported Not Detected (NotDetected); Staphepi Not Reported Not Detected (NotDetected); Stenmaltophilia Not Reported Not Detected (NotDetected); Strep agal(GrpB) Not Reported Not Detected (NotDetected); Strep pneum Not Reported Not Detected (NotDetected); Strep pyog (GrpA) Not Reported Not Detected (NotDetected); Strep spp Not Reported Not Detected (NotDetected); VIM Resistant Gene Not Detected (NotDetected); mcr-1 Colistin Resistant Gene Not Detected (NotDetected)
--- NOTE | 2024-01-28 12:15 | Electrocardiogram Report ---
Test Reason : Blood Pressure : */* mmHG Vent. Rate : 110 BPM Atrial Rate : * BPM P-R Int : * ms QRS Dur : 82 ms QT Int : 314 ms P-R-T Axes : * -43 15 degrees QTcB Int : 424 ms Atrial fibrillation with rapid ventricular response Left axis deviation Cannot rule out Anterior infarct , age undetermined Low voltage QRS Abnormal ECG When compared with ECG of 23-Nov-2021 07:39, Atrial fibrillation has replaced Sinus rhythm Vent. rate has increased by 36 bpm T wave inversion now evident in Lateral leads Confirmed by Teri Zheng (Jenny) on 01/28/2024 9:33:02 AM Referred By: REFERRED SELF Confirmed By: Teri Zheng
--- NOTE | 2024-01-28 12:15 | Electrocardiogram Report ---
Test Reason : Blood Pressure : */* mmHG Vent. Rate : 80 BPM Atrial Rate : 80 BPM P-R Int : 150 ms QRS Dur : 92 ms QT Int : 382 ms P-R-T Axes : 76 -21 8 degrees QTcB Int : 440 ms Sinus rhythm with Premature atrial complexes Low voltage QRS Otherwise normal ECG When compared with ECG of 27-Jan-2024 19:50, (unconfirmed) Sinus rhythm has replaced Atrial fibrillation Minimal criteria for Anterior infarct are no longer Present T wave inversion no longer evident in Lateral leads Confirmed by Teri Zheng (Jenny) on 01/28/2024 9:35:10 AM Referred By: REFERRED SELF Confirmed By: Teri Zheng
--- NOTE | 2024-01-28 13:37 | Hospitalist Progress Note ---
Date of Service January 28, 2024 Assessment & Plan (1) Sepsis due to urinary tract infection: Plan: With bacteremia/septicemia Patient presented to the ED on 01/26 with complaints from her family that she had several days of generalized fatigue, lethargy, and decreased ability to engage in usual activities. -Urine culture + for gram negative bacilli -Blood culture + for gram negative bacilli PCR serologies revealing E coli Await sensitivities -Continue Zosyn 4.5 g IV q8h -s/p 2L IVF -Tylenol 650mg PO q6h for pain or fever -reviewed CBC 01/27: WBC downtrending, remainder stable -reviewed BMP 01/27: stable -Procalcitonin 01/26: 7.83 -renal US obtained 01/27 and reviewed:kidneys normal size and w/o hydronephrosis AM CBC, BMP, procal With hyperglycemia, h/o prediabetes, check A1C in Am (2) UTI (urinary tract infection): Plan: see plan above (3) Elevated troponin: Plan: Troponin mildly elevated on admission at 32.7. Recheck 01/27 revealed troponin of 32.6 ECG without ischemic changes Likely elevated due to sepsis Patient without chest pain ECHO pending (4) PAC (premature atrial contraction): Plan: Initial EKG on 01/26 read as A fib but showed considerable noise repeat EKG 01/27 showed normal sinus rhythm w/ PACS On telemetry, continue to monitor (5) Hypokalemia: Plan: Patient's potassium 3.3 on admission s/p 40meq PO AM potassium reviewed 01/27: WNL (6) Hypomagnesemia: Plan: Patient with mildly low magnesium on admission of 1.8 s/p 1g IV magnesium sulfate recheck Magnesium 01/27: WNL Hypokalemia-replaced with po KCl and improved follow BMP Plan Chronic conditions: HTN: HCTZ on hold, continue Losartan hx of DVT: Eliquis Hypothyroidism: Synthroid, TSH 1.7 in 10/2023 Diet: heart healthy Code status: full DVT prophylaxis: Eliquis Disposition: continued inpatient stay Updated daughter at bedside 01/27 Admission and Anticipated Discharge Date Admission Date: January 27, 2024 Supervising Physician Co-Signing Physician Notes PA Supervision Note: I did not personally see or examine the patient today, but I verified all zamora points of MILLY Kern's assessment and plan with the following exceptions/additions: None Subjective Patient seen and examined this morning and afternoon. Patient reported to be feeling okay today. She states she has low back pain which is chronic for her. she states she does not think it is out of the ordinary. Patient denied chest pain, shortness of breath, nausea, vomiting, abdominal pain. Patient denied urinary urgency, frequency, or hematuria. Denied fevers and chills. Physical Exam 2 Constitutional: WD/WN, vitals as above Eyes: PERRL, conjunctivae normal, anicteric sclerae Respiratory: normal respiratory effort, lungs clear to auscultation Cardiovascular: tachycardic, no murmur Gastrointestinal (Abdomen): normal bowel sounds, soft, nontender, no hepatosplenomegaly Skin: no rashes, warm and dry Psychiatric: A+Ox3, euthymic affect Results & Data Results & Data Vital Signs (Past 12 Hours) Vital Signs Temp Pulse Pulse Resp BP BP Pulse Ox 01/28/24 13:06 37.1 C 99 H 18 168/82 H 95 01/28/24 11:00 71 22 133/65 97 01/28/24 07:48 92 H 20 110/50 L 94 01/28/24 07:02 79 01/28/24 06:15 84 22 124/66 96 01/28/24 05:00 89 24 114/62 97 01/28/24 04:00 86 18 135/68 96 01/28/24 03:03 109 H 18 158/94 H 95 01/28/24 02:15 103 H 18 169/83 H 95 O2 Del Method O2 Flow Rate 01/28/24 13:06 Room Air 01/28/24 11:00 Room Air 01/28/24 07:48 Room Air 01/28/24 07:02 01/28/24 06:15 Nasal Cannula 1 01/28/24 05:00 Nasal Cannula 2 01/28/24 04:00 Nasal Cannula 2 01/28/24 03:03 Room Air 01/28/24 02:15 Room Air Laboratory Results 01/28/24 02:14 01/28/24 02:14 CBC, BMP, blood cultures, urine culture reviewed Diagnostic Findings Chest X-Ray 01/27/24 19:58 SINGLE VIEW CHEST CLINICAL HISTORY: Sepsis. FINDINGS: An AP, portable, upright chest radiograph is compared to study dated 11/23/2021. The cardiomediastinal silhouette is unremarkable noting atherosclerotic calcification of the thoracic aorta. Chronic interstitial thickening is similar to previous. There are left basilar opacities. No large pleural effusion or pneumothorax is seen. The skeletal structures are osteopenic. The bony thorax is grossly intact. Cholecystectomy clips are seen in the right upper quadrant. IMPRESSION: Left basilar opacities likely could represent scarring/atelectasis versus a mild pneumonitis. Correlate clinically. ACT 112: Negative or not required by law. Electronically signed by: Cyril Dill M.D. 01/27/2024 9:[address] 01/27/24 20:03 Exam(s): CT HEAD Without Contrast EXAM: CT Head Without Intravenous Contrast CLINICAL HISTORY: Reason for exam: headache, on eliquis. TECHNIQUE: Axial computed tomography images of the head/brain without intravenous contrast. CTDI is 35 mGy and DLP is 624 mGy-cm. Automated exposure control was utilized for the study. A dose lowering technique was utilized adhering to the principles of ALARA. COMPARISON: Prior head CT from August 31, 2019. FINDINGS: Brain: Unremarkable. No hemorrhage. No significant white matter disease. No edema. Ventricles: Unremarkable. No ventriculomegaly. Bones/joints: Unremarkable. No acute fracture. Soft tissues: Unremarkable. Sinuses: Unremarkable as visualized. No acute sinusitis. Mastoid air cells: Unremarkable as visualized. No mastoid effusion. IMPRESSION: No evidence of acute intracranial pathology. Electronically signed by: Marcela Cavazos MD 01/27/24 23:10 PM Renal Ultrasound 01/28/24 10:43 Fabby Corbin Jane ULTRASOUND KIDNEYS AND BLADDER CLINICAL HISTORY: Urinary tract infection. COMPARISON STUDY: Abdominal CT dated 04/05/2018. TECHNIQUE: Real-time, grayscale, and color flow sonography of the kidneys and bladder is performed. Images are reviewed in the transverse and longitudinal planes. FINDINGS: Kidneys: The kidneys are normal in size and echotexture. The right kidney measures 12.0 cm in length and the left kidney measures 11.9 cm in length. There is no hydronephrosis. No shadowing renal calculi are identified. A 3.7 cm cyst is again seen on the right. There is no sonographic evidence of contour deforming renal mass lesion. No perinephric fluid is identified. Bladder: The bladder is decompressed and could not be assessed. IMPRESSION: 1. The kidneys are normal in size and without hydronephrosis. 2. The bladder was decompressed and could not be assessed. ACT 112: Negative or not required by law. Electronically signed by: Cyril Dill M.D. 01/28/2024 12:06 PM PG Care Time/CCT Total # of Minutes Spent Total Time Spent with Patient: Total time spent is greater than 50% in coordination of care (as documented) at patient's floor/unit and/or counseling patient: Coding Level of Care Code 29965 SUB INP/OBS CARE 3/50MIN Diagnoses Sepsis due to urinary tract infection A41.9; N39.0 Urinary tract infection without hematuria, site unspecified N39.0 Hematuria presence: without hematuria Urinary tract infection type: site unspecified Elevated troponin R79.89 PAC (premature atrial contraction) I49.1 Hypokalemia E87.6 Hypomagnesemia E83.42 (2) UTI (urinary tract infection) Hematuria presence: without hematuria Urinary tract infection type: site unspecified Qualified Code(s): N39.0 - Urinary tract infection, site not specified
--- NOTE | 2024-01-28 14:09 | Ultrasound Report ---
Fabby Corbin Jane ULTRASOUND KIDNEYS AND BLADDER CLINICAL HISTORY: Urinary tract infection. COMPARISON STUDY: Abdominal CT dated 04/05/2018. TECHNIQUE: Real-time, grayscale, and color flow sonography of the kidneys and bladder is performed. I mages are reviewed in the transverse and longitudinal planes. FINDINGS: Kidneys: The kidneys are normal in size and echotexture. The right kidney measures 12.0 cm in length and the left kidney measures 11.9 cm in length. There is no hydronephrosis. No shadowing renal calcu li are identified. A 3.7 cm cyst is again seen on the right. There is no sonographic evidence of cont our deforming renal mass lesion. No perinephric fluid is identified. Bladder: The bladder is decompressed and could not be assessed. IMPRESSION: 1. The kidneys are normal in size and without hydronephrosis. 2. The bladder was decompressed and could not be assessed. ACT 112: Negative or not required by law. Electronically signed by: Cyril Dill M.D. 01/28/2024 12:06 PM
[2024-01-28] MEDS: CALCIUM 600MG + VIT D 400 IU TAB PO SCH (20:34)
[2024-01-28] MEDS: ACETAMINOPHEN 325 MG TAB PO PRN (20:34)
[2024-01-29 07:12] LABS: Basophils # (auto) 0.04 K/uL (0.00-0.20); Basophils % (auto) 0.4 %; Eosinophils # (auto) 0.08 K/uL (0.00-0.50); Eosinophils % (auto) 0.8 %; Hematocrit (blood only) 34.7 % (37.0-47.0); Hemoglobin 11.8 g/dl (12.0-16.0); Lymphocytes # (auto) 1.29 K/uL (1.20-3.40); Lymphocytes % (auto) 12.3 %; Mean Corpuscular Hemoglobin 29.1 pg (25.0-34.0); Mean Corpuscular Volume 85.7 fL (80.0-100.0); Monocytes # (auto) 1.22 K/uL (0.11-0.59); Monocytes % (auto) 11.6 %; Neutrophils # (auto) 7.78 K/uL (1.40-6.50); Neutrophils % (auto) 73.9 %; Platelet Count 207 K/uL (130-400); RDW Coefficient of Variation 12.7 % (11.5-14.5); RDW Standard Deviation 39.6 fL (36.4-46.3); Red Blood Count 4.05 M/uL (4.20-5.40); White Blood Count 10.51 K/ul (4.8-10.8)
[2024-01-29 07:24] LABS: Calcium 8.5 mg/dl (8.6-10.3); Creatinine Clr Calc Pharmacy 48.4 ml/min; Est GFR (African American) 59.9 ml/min; Est GFR (Non-African American) 51.7 ml/min; Magnesium 1.9 mg/dl (1.7-2.4); Potassium 3.5 mmol/L (3.5-5.1)
[2024-01-29 08:27] LABS: Estimated Average Glucose 126 mg/dl
--- NOTE | 2024-01-29 11:05 | Hospitalist Progress Note ---
Date of Service January 29, 2024 Assessment & Plan (1) Sepsis due to urinary tract infection: Plan: With bacteremia/septicemia Patient presented to the ED on 01/26 with complaints from her family that she had several days of generalized fatigue, lethargy, and decreased ability to engage in usual activities. -Urine culture + for E. coli switched from Zosyn to Rocephin based on urine sensitivities 01/28 -Blood culture + for gram negative bacilli PCR serologies revealing E coli Await sensitivities -s/p 2L IVF -Tylenol 650mg PO q6h for pain or fever -reviewed CBC 01/28: WBC WNL -reviewed BMP 01/28: stable -Reviewed procalcitonin 01/28: downtrending (4.63) -renal US obtained 01/27 and reviewed:kidneys normal size and w/o hydronephrosis -hemoglobin A1c reviewed 01/28: 6% AM CBC, BMP, procal (2) UTI (urinary tract infection): Plan: see plan above (3) Elevated troponin: Plan: Troponin mildly elevated on admission at 32.7. Recheck 01/27 revealed troponin of 32.6 ECG without ischemic changes Likely elevated due to sepsis Patient without chest pain ECHO results reviewed 01/28: LVEF 60-65%. Basal septum thickened and angulated consisted with sigmoid septum. Thickening of interatrial septum suggests lipomatous hypertrophy. Atrial septum aneurysmal. Aortic valve sclerosis moderate w/o significant valvular stenosis. Grade 1 diastolic dysfunction. (4) PAC (premature atrial contraction): Plan: Initial EKG on 01/26 read as A fib but showed considerable noise repeat EKG 01/27 showed normal sinus rhythm w/ PACS On telemetry, continue to monitor (5) Hypokalemia: Plan: Patient's potassium 3.3 on admission s/p 40meq PO AM potassium reviewed 01/28: WNL (6) Hypomagnesemia: Plan: Patient with mildly low magnesium on admission of 1.8 s/p 1g IV magnesium sulfate recheck Magnesium 01/27: WNL AM Magnesium Plan Chronic conditions: HTN: HCTZ on hold, continue Losartan hx of DVT: Eliquis Hypothyroidism: Synthroid, TSH 1.7 in 10/2023 Diet: heart healthy Code status: full DVT prophylaxis: Eliquis Disposition: continued inpatient stay , PT/OT evals placed to see if needs rehab vs home Updated daughter at bedside 01/28 Admission and Anticipated Discharge Date Admission Date: January 27, 2024 Supervising Physician Co-Signing Physician Notes PA Supervision Note: I did not personally see or examine the patient today, but I verified all zamora points of MILLY Kern's assessment and plan with the following exceptions/additions: None Subjective Patient seen and examined this morning with daughter at bedside. Patient denied any complaints today. She did state her leg edema is chronic for her. States she wears compression stockings usually except for in the summer time. She states she does not notice compression stockings help her edema. Physical Exam 2 Constitutional: WD/WN, vitals as above Eyes: PERRL, conjunctivae normal, anicteric sclerae Respiratory: normal respiratory effort, lungs clear to auscultation Cardiovascular: RRR, b/l LE edema Gastrointestinal (Abdomen): normal bowel sounds, soft, nontender, no hepatosplenomegaly Skin: no rashes, warm and dry Psychiatric: A+Ox3, euthymic affect Results & Data Results & Data Vital Signs (Past 12 Hours) Vital Signs Temp Pulse Pulse Resp BP Pulse Ox O2 Del Method 01/29/24 10:18 Room Air 01/29/24 07:52 36.6 C 76 18 162/85 H 98 Room Air 01/29/24 07:16 71 01/29/24 03:05 36.9 C 73 18 146/80 H 96 Room Air Laboratory Results 01/29/24 06:37 01/29/24 06:37 PG Care Time/CCT Total # of Minutes Spent Total Time Spent with Patient: Total time spent is greater than 50% in coordination of care (as documented) at patient's floor/unit and/or counseling patient: Coding Level of Care Code 96687 SUB INP/OBS CARE 2/35MIN Diagnoses Sepsis due to urinary tract infection A41.9; N39.0 Urinary tract infection without hematuria, site unspecified N39.0 Hematuria presence: without hematuria Urinary tract infection type: site unspecified Elevated troponin R79.89 PAC (premature atrial contraction) I49.1 Hypokalemia E87.6 Hypomagnesemia E83.42 (2) UTI (urinary tract infection) Hematuria presence: without hematuria Urinary tract infection type: site unspecified Qualified Code(s): N39.0 - Urinary tract infection, site not specified
[2024-01-29] MEDS: cefTRIAXone SODIUM 2,000 MG/50 ML BAG IV SCH (12:59)
--- NOTE | 2024-01-29 16:22 | Electrocardiogram Report ---
Test Reason : Blood Pressure : */* mmHG Vent. Rate : 80 BPM Atrial Rate : 80 BPM P-R Int : 174 ms QRS Dur : 86 ms QT Int : 384 ms P-R-T Axes : 28 -22 9 degrees QTcB Int : 442 ms Sinus rhythm with Premature atrial complexes Otherwise normal ECG When compared with ECG of 27-Jan-2024 22:11, No significant change was found Confirmed by Teri Zheng (Jenny) on 01/29/2024 4:22:08 PM Referred By: REFERRED SELF Confirmed By: Teri Zheng
--- NOTE | 2024-01-29 16:58 | Electrocardiogram Report ---
Test Reason : Blood Pressure : */* mmHG Vent. Rate : 77 BPM Atrial Rate : 77 BPM P-R Int : 164 ms QRS Dur : 88 ms QT Int : 368 ms P-R-T Axes : * -47 59 degrees QTcB Int : 416 ms Normal sinus rhythm Left anterior fascicular block Abnormal ECG When compared with ECG of 27-Jan-2024 22:12, (unconfirmed) Premature atrial complexes are no longer Present Nonspecific T wave abnormality no longer evident in Inferior leads Confirmed by Teri Zheng (Jenny) on 01/29/2024 4:57:38 PM Referred By: REFERRED SELF Confirmed By: Teri Zheng
[2024-01-30 06:35] LABS: Basophils # (auto) 0.02 K/uL (0.00-0.20); Basophils % (auto) 0.2 %; Eosinophils # (auto) 0.16 K/uL (0.00-0.50); Eosinophils % (auto) 1.9 %; Hematocrit (blood only) 33.4 % (37.0-47.0); Hemoglobin 11.3 g/dl (12.0-16.0); Immature Granulocytes # (auto) 0.11 K/uL (0.01-0.20); Immature Granulocytes % (auto) 1.3 %; Lymphocytes # (auto) 1.72 K/uL (1.20-3.40); Lymphocytes % (auto) 20.3 %; Mean Corpuscular Hgb Conc 33.8 g/dL (32.0-36.0); Mean Corpuscular Volume 85.6 fL (80.0-100.0); Mean Platelet Volume 9.7 fL (9.4-12.4); Monocytes % (auto) 14.2 %; Neutrophils # (auto) 5.26 K/uL (1.40-6.50); Neutrophils % (auto) 62.1 %; Platelet Count 222 K/uL (130-400); RDW Coefficient of Variation 12.4 % (11.5-14.5); White Blood Count 8.47 K/ul (4.8-10.8)
[2024-01-30 06:55] LABS: BUN Creatinine Ratio 17.8 (10-20); Calcium 8.7 mg/dl (8.6-10.3); Creatinine Clr Calc Pharmacy 47.7 ml/min; Est GFR (African American) 59.2 ml/min; Est GFR (Non-African American) 51.1 ml/min; Magnesium 1.9 mg/dl (1.7-2.4); Potassium 3.8 mmol/L (3.5-5.1)
[2024-01-30] MEDS: hydroCHLOROthiazide 25 MG TAB PO SCH (08:30)
[2024-01-30 10:55] VITALS: RESP 18
--- NOTE | 2024-01-30 14:15 | Discharge Summary ---
Discharge Summary Date of Service January 30, 2024 Principal Dx & Hospital Course #1 = Principal Diagnosis (1) Sepsis due to urinary tract infection: With bacteremia/septicemia Patient presented to the ED on 01/26 with complaints from her family that she had several days of generalized fatigue, lethargy, and decreased ability to engage in usual activities. -Urine culture + for E. coli switched from Zosyn to Rocephin based on urine sensitivities 01/28 Patient discharged home on Augmentin twice daily for 10 additional days. Further abx therapy after this deferred to PCP. -Blood culture + E. Coli -s/p 2L IVF -reviewed CBC 01/29: WBC WNL -reviewed BMP 01/29: stable -Reviewed procalcitonin 01/29: downtrending (2.08) -renal US obtained 01/27 and reviewed:kidneys normal size and w/o hydronephrosis -hemoglobin A1c reviewed 01/28: 6% (2) UTI (urinary tract infection): see plan above (3) Elevated troponin: Troponin mildly elevated on admission at 32.7. Recheck 01/27 revealed troponin of 32.6 ECG without ischemic changes Likely elevated due to sepsis Patient without chest pain ECHO results reviewed 01/28: LVEF 60-65%. Basal septum thickened and angulated consisted with sigmoid septum. Thickening of interatrial septum suggests lipomatous hypertrophy. Atrial septum aneurysmal. Aortic valve sclerosis moderate w/o significant valvular stenosis. Grade 1 diastolic dysfunction. (4) PAC (premature atrial contraction): Initial EKG on 01/26 read as A fib but showed considerable noise repeat EKG 01/27 showed normal sinus rhythm w/ PACS (5) Hypokalemia: Patient's potassium 3.3 on admission s/p 40meq PO Potassium reviewed 01/29: WNL (6) Hypomagnesemia: Patient with mildly low magnesium on admission of 1.8 s/p 1g IV magnesium sulfate recheck Magnesium 01/29: WNL Plan Chronic conditions: HTN: HCTZ, Losartan hx of DVT: Eliquis Hypothyroidism: Synthroid, TSH 1.7 in 10/2023 Updated daughter w/ discharge plans on 01/29 PT recommended returning home w/ her prior living arrangement upon discharge. Admission HPI Per Admitting Provider The patient is an 83-year-old the past medical history including hypertension, hypothyroidism, right lower extremity DVT, GERD, impaired fasting glucose, macular degeneration, hyperlipidemia, chronic low back pain and obesity. She presents to the emergency department with family concerns regarding several days of generalized fatigue, lethargy and decreased ability to engage in her usual activities. Discharge Exam Constitutional WD/WN, vitals as above Eyes PERRL, conjunctivae normal, anicteric sclerae Respiratory normal respiratory effort, lungs clear to auscultation Gastrointestinal (Abdomen) normal bowel sounds, soft, nontender, no hepatosplenomegaly Skin no rashes, warm and dry Psychiatric A+Ox3, euthymic affect Discharge Plan Discharge Items Patient Disposition: Home - Self-Care Reason For Visit: SEPSIS DUE TO UTI, ELEVATED TROP, HYPOKALEMIA, PAC Discharge Diagnosis: Urinary tract infection, bacteremia, sepsis Activity: Resume your previous activity Non-emergency contact: Primary Care Provider Call non-emergency contact if: you have any medication questions, your symptoms worsen and you have a fever Follow-up/Referrals: Brayden Quinn, [Primary Care Provider] - (Please follow up within 1-2 weeks of discharge. ) Diet: Heart Healthy Addtl Attending Provider Instructions: Mrs. Corbin, Beau were recently hospitalized for fatigue and found to have a urinary tract infection and bacteremia. You were treated with appropriate antibiotics and symptoms resolved. You were also evaluated by physical therapy who stated it was safe to return home with your son. Please see recommendations below regarding your discharge. 1. Please take Augmentin twice daily for the next 10 days. Your first dose will be tomorrow morning 10. Please take with food to avoid GI upset. 2. You may resume the remainder of your medications. 3. Please follow up with your PCP within 1-2 weeks of discharge. If you develop fever, chills, chest pain, shortness of breath, increasing weakness/fatigue please report back to the ER for further care. Sincerely, Kristi Kern PA-C Pending Studies at Discharge: No Stand-Alone Forms: My [employer], Smoking Cessation Medications and DC Order Prescriptions: New amoxicillin-pot clavulanate 875-125 mg tablet 1 tab PO Q12H Qty: 20 0RF Rx Instructions: First dose 01/30 Continued hydrochlorothiazide 25 mg tablet 25 mg PO DAILY Qty: 90 3RF levothyroxine 75 mcg tablet 75 mcg PO DAILY Qty: 90 3RF losartan 100 mg tablet 100 mg PO DAILY Qty: 90 3RF Eliquis 5 mg tablet 5 mg PO BID Qty: 180 3RF meclizine 25 mg tablet 25 mg PO TID PRN (Reason: dizziness) Qty: 30 1RF glucosamine sulfate [Glucosamine] 500 mg Tablet 500 mg PO QAM ascorbic acid (vitamin C) [Vitamin C] 500 mg Tablet 500 mg PO QAM Calcium 600 + D(3) 600 mg calcium- 200 unit Capsule 1 tab PO QPM PreserVision AREDS-2 [id number]-mg Capsule 1 tab PO BID Issue-3 350 mg-235 mg- 90 mg-597 mg Capsule,Delayed Release(Dr/Ec) 1 cap PO BID Discharge Orders: Discharge Order (Routine); Ordered 01/30/24 Ordered By: Katlin Santos/Other Patient Handouts: Prediabetes, 5 Steps for Eating Healthier Admission Data Admit Date/Time: 01/27/24 22:21 Attending Provider: Katlin Vizcarra Admit Provider: Luke Dill Primary Care Provider: Brayden Quinn Other Providers: Luke Dill Other Interventions: Discharge Summary Assessment (RN) Last Done: 01/30/24 17:06 Hospital Stay Data Consultations 01/27/24 21:18 ED Decision to Admit Stat Diagnostic Imagining Performed 01/27/24 20:03 CT head/brain wo con Stat 01/28/24 10:43 US Kidney Bladder [US renal/blad retro comp] Routine Pending Results Patient Have Any Pending Studies at Discharge: No Discharge Instructions Given to Patient (Per Discharging Provider) Beau Estevez were recently hospitalized for fatigue and found to have a urinary tract infection and bacteremia. You were treated with appropriate antibiotics and symptoms resolved. You were also evaluated by physical therapy who stated it was safe to return home with your son. Please see recommendations below regarding your discharge. 1. Please take Augmentin twice daily for the next 10 days. Your first dose will be tomorrow morning 01/30. Please take with food to avoid GI upset. 2. You may resume the remainder of your medications. 3. Please follow up with your PCP within 1-2 weeks of discharge. If you develop fever, chills, chest pain, shortness of breath, increasing weakness/fatigue please report back to the ER for further care. Sincerely, Kristi Kern PA-C Supervising Physician Co-Signing Physician Notes PA Supervision Note: I personally saw and examined the patient. I verified all zamora points and agree with MILLY Kern with the following exceptions and/or additions: S-Pt feeling much better. A low grade fever today but went away with tylenol. No other concerns O- Vitals reviewed Gen: [AAOx3, NAD] HEENT: [anicteric sclerae, EOMI] CV: [RRR no mgr nl S1S2] Pulm: [CTAB no wcr] Ext: [3+ pitting edema legs bilat to the knees] Skin: [no rashes, warm/dry] CBC, BMP, blood cxs reviewed A/P-83 yo female here with seoticemia with shock, E. coli UTI and bacteremia Much improved, stable for dc to home on po Augmentin Total Time Total Time Spent Total Time Spent (In Minutes): 45 Total Time Includes: Examination of the Patient, Discharge Planning and Medication Reconciliation Coding Level of Care Code 03168 INP/OBS DISCH >30 MIN Diagnoses Sepsis due to urinary tract infection A41.9; N39.0 Urinary tract infection without hematuria, site unspecified N39.0 Hematuria presence: without hematuria Urinary tract infection type: site unspecified Elevated troponin R79.89 PAC (premature atrial contraction) I49.1 Hypokalemia E87.6 Hypomagnesemia E83.42
[2024-01-30 15:46] VITALS: BP 156/92; O2SAT 96
[2024-01-30 16:32] VITALS: TEMP 98.7
[2024-01-30 17:08] VITALS: PULSE 85
== END 2024-01-30 17:29 | disposition home or self-care (01) | DRG 872 ==
LOC: ED 19:43 → SUATTDRO 22:21 → EDINP 22:21 → 2E 23:14